=== PATIENT | male | born 1960 | race Hispanic/Latino ===

== ENCOUNTER → 2018-06-10 | Day surgery (SDC) | payer MEDICARE ==
[~2018-06-10] MED LIST: ALENDRONATE SOD35 MG PO; BUPIVACAINE 0.5%/EPI 30 ML SDV INJ ONE; DEXAMETHASONE SOD PHOS INJ 4 MG/ML VIAL ONE; FENTANYL CITRATE/PF 100MCG/2 ML INJ ONE; FUROSEMIDE40 MG PO; HYDROCODONE/APAP 7.5MG-325MG 1 EA TAB ONE; KLOR-CON 1010 MEQ PO; LEFLUNOMIDE20 MG PO; LIDOCAINE HCL 2% LOCAL INJ 5 ML SDV VIAL INJ ONE; LIDOCAINE JELLY 2% 10ML URO-JET ONE; MIDAZOLAM HCL 2 MG/2 ML VIAL ONE; ONDANSETRON HCL INJ 2MG/ML 2ML 2 MG/ML VIAL ONE; PRAMIPEXOLE D0.25 MG PO; PREDNISONE1 MG PO; PREDNISONE5 MG PO; PROPOFOL IV EMULSION 10 MG/ML 20 ML VIAL ONE; SEVOFLURANE INHAL SOLN 250 ML PEN BTL ONE; XELJANZ PO
--- OUTSIDE RECORDS SUMMARY | 2018-06-10 09:21 | XMS REPORT ---
Author Author Danii Joseph [facility] eClinicalWorks Address Unknown Phone Unavailable Care Team Providers Care Chuck Boner Name Role Phone Danii Joseph Unavailable Allergies, Adverse Reactions, Alerts Substance Reaction Event Type N.K.D.A. 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 Assessment Rheumatoid arthritis with positive rheumatoid factor M05.9 Active Problem Special screening for osteoporosis Z13.820 Active Problem 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 Active Medications Medication Code System Code Instructions Start Date End Date Status Dosage PredniSONE [facility] 68701727518 7mg Orally Once a day May 27, 2017 Active 1 tablet Furosemide [facility] 37888096007 40 MG/4ML Orally Twice a day Active 1 ml Tramadol HCl [facility] 99396494443 50 MG Orally once a day May 27, 2017 Active 1 tablet as needed Klor-Con M20 [facility] 26674146776 20 MEQ Orally Once a day Active 1 tablet with food Potassium ND 32987158115 75 MG Orally Once a day Active 1 tablet Leflunomide ND 48089969422 20MG Orally Once a day May 27, 2017 Active 1 tablet Pramipexole Dihydrochloride [facility] 44480961600 0.25 MG Orally Once a day Active 1 tablet before bedtime Vital Signs Date/Time: September 10, 2017 BMI 34.30 Index Weight 225.6 lbs Height 68 in Temperature 97.8 F Cardiac Monitoring Heart Rate 78 /min Blood Pressure Diastolic 70 mm Hg Blood Pressure Systolic 112 mm Hg Results Name Result Date Reference Range Unit Abnormality Flag COMPREHENSIVE METABOLIC PANEL W/EGFR ----ALBUMIN/GLOBULIN RATIO 1.9 20170910 1.0-2.5 (calc) N ----GLOBULIN 2.2 20170910 1.9-3.7 g/dL (calc) N ----ALKALINE PHOSPHATASE 45 20170910 40-115 U/L N ----BILIRUBIN, TOTAL 0.5 20170910 0.2-1.2 mg/dL N ----CHLORIDE 105 20170910 98-110 mmol/L N ----ALT 20 20170910 9-46 U/L N ----POTASSIUM 4.3 20170910 3.5-5.3 mmol/L N ----AST 18 20170910 10-35 U/L N ----SODIUM 139 20170910 135-146 mmol/L N ----BUN/CREATININE RATIO NOT APPLICABLE 20170910 6-22 (calc) ----eGFR 111 20170910 > OR=60 mL/min/1.73m2 N ----CALCIUM 9.2 20170910 8.6-10.3 mg/dL N ----CARBON DIOXIDE 27 20170910 20-31 mmol/L N ----ALBUMIN 4.1 20170910 3.6-5.1 g/dL N ----PROTEIN, TOTAL 6.3 20170910 6.1-8.1 g/dL N ----GLUCOSE 68 20170910 65-139 mg/dL N ----UREA NITROGEN (BUN) 11 20170910 7-25 mg/dL N ----CREATININE 0.86 20170910 0.70-1.33 mg/dL N ----eGFR NON-AFR. CYMRO 96 20170910 > OR=60 mL/min/1.73m2 N Summary Purpose eClinicalWorks Submission
--- OUTSIDE RECORDS SUMMARY | 2018-06-10 09:21 | XMS REPORT ---
Author Organization Unknown Address [address] [place] [address] Phone [phone] Care Team Providers Care Strapping Machine Operator Name Role Phone Owen Chong Jr Unavailable Unavailable Allergies Code Code System Name Reaction Severity Status Onset NKDA Medications Name Status Start Date Stop Date amoxicillin 500 mg capsule Completed 11/09/2016 azithromycin 250 mg tablet Completed 11/09/2016 benzonatate 200 mg capsule Take 1 capsule 3 times a day by oral route for 10 days. Active Not available betamethasone dipropionate 0.05 % topical cream Completed 03/05/2017 cefuroxime axetil 500 mg tablet Completed 11/09/2016 clotrimazole 1 % topical cream Completed 03/05/2017 clotrimazole-betamethasone 1 %-0.05 % topical cream APPLY CREAM TOPICALLY TO AFFECTED AREA TWICE DAILY IN THE MORNING AND EVENING FOR 2 WEEKS Completed 03/05/2017 diclofenac 1 % topical gel Completed 11/09/2016 doxepin 5 % topical cream Active Not available furosemide 40 mg tablet Active Not available gabapentin 100 mg capsule Completed 11/09/2016 guaifenesin ER 600 mg tablet, extended release 12 hr Take 1 tablet every 12 hours by oral route. Active Not available hydrocodone 7.5 mg-acetaminophen 325 mg tablet Completed 11/09/2016 ibuprofen 800 mg tablet Completed 11/09/2016 Klor-Con M20 mEq tablet,extended release Active Not available leflunomide 20 mg tablet Active Not available levofloxacin 500 mg tablet Take 1 tablet every 24 hours by oral route after meals for 10 days. Active Not available methylprednisolone 4 mg tablets in a dose pack Completed 11/09/2016 oseltamivir 75 mg capsule Active Not available peg-electrolyte solution 420 gram oral solution Completed 03/05/2017 prednisone 7 mg once daily as directed Active Not available prednisone 1 mg tablet Active Not available prednisone 5 mg tablet Active Not available Suprep Bowel Prep Kit 17.5 gram-3.13 gram-1.6 gram oral solution Completed 11/09/2016 terbinafine HCl 250 mg tablet Completed 11/09/2016 tramadol 50 mg tablet Active Not available Ventolin HFA 90 mcg/actuation aerosol inhaler Inhale 2 puffs 3 times a day by inhalation route for 30 days. Active Not available Xeljanz XR 11 mg tablet,extended release Take 1 tablet every day by oral route. Active Not available Problems Name Status Onset Date Source Obstructive Sleep Apnea Syndrome Active 11/09/2016 Interstitial Lung Disease Active 11/09/2016 Rheumatoid Arthritis Active 11/09/2016 Osteoarthritis of Knee Active 11/09/2016 Polyp of Colon Active 01/29/2017 Internal Hemorrhoids Active 01/29/2017 Idiopathic Pulmonary Fibrosis Active 04/05/2017 Procedures Date Name Performed by 10/15/2016 Colonoscopy & Polypectomy Information not available 11/09/2016 Electrocardiogram [facility] [address] [facility] [address] [place] [address] (Work Place) 07/27/2017 XR, Chest, 2 View [facility] [address] [place] [address] (Work Place) Lab Results Date Name Specimen Result Interpretation Description Value Range Status Address 07/23/2017 CBC W/ Auto Diff High White Blood Cell Count 12.1 thousand/uL 3.8-10.8 thousand/uL Final [facility] Laboratory: [address] Normal Red Blood Cell Count 4.64 million/uL 4.20-5.80 million/uL Final [facility] Laboratory: [address] Normal Hemoglobin 14.0 g/dL 13.2-17.1 g/dL Final [facility] Laboratory: [address] Normal Hematocrit 40.6 % 38.5-50.0 % Final [facility] Laboratory: [address] Normal Mcv 87.5 fL 80.0-100.0 fL Final [facility] Laboratory: [address] Normal Mch 30.2 pg 27.0-33.0 pg Final [facility] Laboratory: [address] Normal Mchc 34.5 g/dL 32.0-36.0 g/dL Final [facility] Laboratory: [address] Normal Rdw 13.3 % 11.0-15.0 % Final [facility] Laboratory: [address] [place] Normal Platelet Count 166 thousand/uL 140-400 thousand/uL Final [facility] Laboratory: [address] [place] Normal Mpv 10.8 fL 7.5-12.5 fL Final [facility] Laboratory: [address] [place] High Absolute Neutrophils 9390 cells/uL 0131-6636 cells/uL Final [facility] Laboratory: [address] [place] Normal Absolute Lymphocytes 1186 cells/uL 850-3900 cells/uL Final [facility] Laboratory: [address] [place] High Absolute Monocytes 1488 cells/uL 200-950 cells/uL Final [facility]: [address] [place] Low Absolute Eosinophils 0 cells/uL 15-500 cells/uL Final [facility]: [address] [place] Normal Absolute Basophils 36 cells/uL 0-200 cells/uL Final [facility] Laboratory: [address] [place] Normal Neutrophils 77.6 % Final [facility] Laboratory: [address] [place] Normal Lymphocytes 9.8 % Final [facility] Laboratory: [address] [place] Normal Monocytes 12.3 % Final [facility] Laboratory: [address] [place] Normal Eosinophils 0.0 % Final [facility] Laboratory: [address] [place] Normal Basophils 0.3 % Final [facility] CMP, Serum or Plasma Alt 27 U/L 0-55 U/L Final [facility] [facility] Ast 29 U/L 5-34 U/L Final [facility] [facility] Bun 15.2 mg/dL 8.4-25.7 mg/dL Final [facility]: [address] [facility] Alk Phos 48 unit/L 40-150 unit/L Final [facility]055 [facility] High Glucose 110 mg/dL 70-99 mg/dL Final [facility]: [address] [facility] Albumin 3.5 g/dL 3.5-5.0 g/dL Final [facility] Laboratory: [address] [place] [address], [place] Creatinine 1.02 mg/dL 0.72-1.25 mg/dL Final [facility] Laboratory: [address] [place] [address], [place] eGFR Non- >60 mL/min/1.73m2 >60 mL/min/1.73m2 Final [facility] Laboratory: [address] Total Bilirubin 0.6 mg/dL 0.2-1.2 mg/dL Final [facility] Laboratory: [address] [place] [address], [place] eGFR - >60 mL/min/1.73m2 >60 mL/min/1.73m2 Final [facility] Laboratory: [address] [place] [address], [place] Low Sodium 132 mEq/L 136-145 mEq/L Final [facility] Laboratory: [address] Potassium 4.1 mEq/L 3.5-5.1 mEq/L Final [facility] Laboratory: [address] Low Chloride 96 mmol/L 98-107 mmol/L Final [facility] Laboratory: [address] Total Protein 6.8 g/dL 6.4-8.3 g/dL Final [facility] Laboratory: [address] Low Calcium 8.0 mg/dL 8.4-10.2 mg/dL Final [facility] Laboratory: [address] Co2 24.6 mmol/L 22.0-29.0 mmol/L Final [facility] Laboratory: [address] Anion Gap 11 calc Final [facility] Laboratory: [address] Jennifer Humphries [facility], [place] 07/23/2017 Urinalysis, Dipstick Color Color yellow [facility]: [address] [place] [address], [place] Color Appearance clear [facility]: [address] [place] [address], [place] Color Glucose negative [facility]: 8951 [facility], [place] Color Bilirubin negative [facility]: [address] [place] [address], [place] Color Ketones negative [facility]: [address] [place] [address], [place] Color Specific [place] 1.010 [facility]: 8951 [facility], [place] Color Blood negative [facility]: [address] [facility], [place] Color PH 6.0 [facility]: 8[address] [facility], [place] Color Protein trace [facility]: 8[address] [facility], [place] Color Urobilinogen 0.2 [facility]: 8[address] [facility], [place] Color Nitrites negative [facility]: 8[address] [facility], [place] Color Leukocytes negative [facility]: [address] [place] [address], [place] 04/05/2017 CMP, Serum or Plasma Normal Glucose 79 mg/dL 65-99 mg/dL Final [facility] Laboratory: [address] Normal Urea Nitrogen (BUN) 13 mg/dL 7-25 mg/dL Final [facility] Laboratory: [address] Normal Creatinine 0.90 mg/dL 0.70-1.33 mg/dL Final [facility] Laboratory: [address] Normal eGFR Non-afr. Northern Irish 94 mL/min/1.73m2 > or=60 mL/min/1.73m2 Final [facility] Laboratory: [address] Normal eGFR 109 mL/min/1.73m2 > or=60 mL/min/1.73m2 Final [facility] Laboratory: [address] BUN/creatinine Ratio not applicable (calc) 6-22 (calc) Final [facility] Laboratory: [address] Normal Sodium 142 mmol/L 135-146 mmol/L Final [facility] Laboratory: [address] Normal Potassium 4.2 mmol/L 3.5-5.3 mmol/L Final [facility] Laboratory: [address] Normal Chloride 104 mmol/L 98-110 mmol/L Final [facility]: [address] Normal Carbon Dioxide 27 mmol/L 20-31 mmol/L Final [facility] Laboratory: [address] Normal Calcium 9.3 mg/dL 8.6-10.3 mg/dL Final [facility] Laboratory: [address] [place] [address] Normal Protein, Total 6.7 g/dL 6.1-8.1 g/dL Final [facility] Laboratory: [address] Normal Albumin 4.3 g/dL 3.6-5.1 g/dL Final [facility] Laboratory: [address] [place] [address] Normal Globulin 2.4 g/dL (calc) 1.9-3.7 g/dL (calc) Final [facility] Laboratory: [address] [place] [address] Normal Albumin/globulin Ratio 1.8 (calc) 1.0-2.5 (calc) Final [facility] Laboratory: [address] [place] [address] Normal Bilirubin, Total 0.5 mg/dL 0.2-1.2 mg/dL Final [facility] Laboratory: [address] [place] [address] Normal Alkaline Phosphatase 50 U/L 40-115 U/L Final [facility] Laboratory: [address] [place] [address] Normal Ast 20 U/L 10-35 U/L Final [facility] Laboratory: [address] [place] [address] Normal Alt 23 U/L 9-46 U/L Final [facility] Laboratory: [address] [place] [address] 04/05/2017 Hepatitis C Virus RNA, Quant, PCR, Serum or Plasma Normal Hepatitis C Antibody non-reactive non-reactive Final [facility] Laboratory: [address] [place] [address] Normal Signal to Cut-off 0.03 <1.00 Final [facility] Laboratory: [address] [place] [address] 04/05/2017 HbA1C (Hemoglobin a1C), Blood Normal Hemoglobin a1C 5.3 % of total HGB <5.7 % of total HGB Final [facility] Laboratory: [address] [place] [address] EAG (mg/dL) 105 (calc) Final [facility] Laboratory: [address] [place] [address] EAG (mmol/L) 5.8 (calc) Final [facility] Laboratory: [address] [place] [address] 09/17/2016 TSH, Serum or Plasma Normal Tsh 1.94 mIU/L 0.40-4.50 mIU/L Final [facility] Laboratory: [address] [place] [address] 09/17/2016 Lipid Panel, Serum High Cholesterol, Total 231 mg/dL 125- 200 mg/dL Final [facility] Laboratory: [address] Normal HDL Cholesterol 41 mg/dL > or=40 mg/dL Final [facility]: [address] High Triglycerides 160 mg/dL <150 mg/dL Final [facility] Laboratory: [address] High LDL-cholesterol 158 mg/dL (calc) <130 mg/dL (calc) Final [facility] Laboratory: [address] High Chol/hdlc Ratio 5.6 (calc) < or=5.0 (calc) Final [facility] Laboratory: [address] High Non HDL Cholesterol 190 mg/dL (calc) Final [facility]: [address] 09/17/2016 CMP, Serum or Plasma Normal Glucose 90 mg/dL 65-99 mg/dL Final [facility] Laboratory: [address] Normal Urea Nitrogen (BUN) 15 mg/dL 7-25 mg/dL Final [facility] Laboratory: [address] Normal Creatinine 0.91 mg/dL 0.70-1.33 mg/dL Final [facility] Laboratory: [address] Normal eGFR Non-afr. Northern Irish 93 mL/min/1.73m2 > or=60 mL/min/1.73m2 Final [facility] Laboratory: [address] Normal eGFR 108 mL/min/1.73m2 > or=60 mL/min/1.73m2 Final [facility] Laboratory: [address] BUN/creatinine Ratio not applicable (calc) 6-22 (calc) Final [facility]: [address] Normal Sodium 142 mmol/L 135-146 mmol/L Final [facility] Laboratory: [address] Normal Potassium 3.9 mmol/L 3.5-5.3 mmol/L Final [facility] Laboratory: [address] Fwmarcie [address] Normal Chloride 104 mmol/L 98-110 mmol/L Final [facility]: [address] Jennifer y [address] Normal Carbon Dioxide 25 mmol/L 20-31 mmol/L Final [facility] Laboratory: [address] [place] Normal Calcium 9.4 mg/dL 8.6-10.3 mg/dL Final [facility]055 [facility] Protein, Total 7.0 g/dL 6.1-8.1 g/dL Final [facility] Laboratory: [address] Normal Albumin 4.5 g/dL 3.6-5.1 g/dL Final [facility] Laboratory: [address] Normal Globulin 2.5 g/dL (calc) 1.9-3.7 g/dL (calc) Final [facility] Laboratory: [address] Normal Albumin/globulin Ratio 1.8 (calc) 1.0-2.5 (calc) Final [facility] Laboratory: [address] Normal Bilirubin, Total 0.7 mg/dL 0.2-1.2 mg/dL Final [facility] Laboratory: [address] Normal Alkaline Phosphatase 55 U/L 40-115 U/L Final [facility]: [address] Normal Ast 16 U/L 10-35 U/L Final [facility]: [address] Normal Alt 18 U/L 9-46 U/L Final [facility] Laboratory: [address] [place] [address] 09/17/2016 PT/PTT, Plasma Normal Partial Thromboplastin Time, Activated 27 sec 22-34 sec Final [facility] Laboratory: [address] Normal Inr 1.0 Final [facility] Laboratory: [address] Normal Pt 10.4 sec 9.0-11.5 sec Final [facility]: [address] [facility] 09/17/2016 PSA, Serum or Plasma Normal PSA, Total 1.0 NG/mL < or=4.0 NG/mL Final [facility] Laboratory: [address] [place] [address] 09/17/2016 CBC W/ Auto Diff Normal White Blood Cell Count 8.2 thousand/uL 3.8-10.8 thousand/uL Final [facility] Laboratory: [address] [place] Normal Red Blood Cell Count 4.55 million/uL 4.20-5.80 million/uL Final [facility] Laboratory: [address] [place] Normal Hemoglobin 13.9 g/dL 13.2-17.1 g/dL Final [facility] Laboratory: [address] Normal Hematocrit 42.2 % 38.5-50.0 % Final [facility] Laboratory: [address] [place] Normal Mcv 92.7 fL 80.0-100.0 fL Final [facility] Laboratory: [address] [place] Normal Mch 30.7 pg 27.0-33.0 pg Final [facility] Laboratory: [address] [place] Normal Mchc 33.1 g/dL 32.0-36.0 g/dL Final [facility] Laboratory: [address] [place] Normal Rdw 14.8 % 11.0-15.0 % Final [facility] Laboratory: [address] [place] Normal Platelet Count 196 thousand/uL 140-400 thousand/uL Final [facility] Laboratory: [address] [place] Normal Mpv 9.1 fL 7.5-12.5 fL Final [facility] Laboratory: [address] Normal Absolute Neutrophils 5879 cells/uL 0133-9164 cells/uL Final [facility] Laboratory: [address] Normal Absolute Lymphocytes 1656 cells/uL 850-3900 cells/uL Final [facility]: [address] [place] Normal Absolute Monocytes 558 cells/uL 200-950 cells/uL Final [facility] Laboratory: [address] [place] Normal Absolute Eosinophils 82 cells/uL 15-500 cells/uL Final [facility]: [address] [place] Normal Absolute Basophils 25 cells/uL 0-200 cells/uL Final [facility]: [address] [place] Normal Neutrophils 71.7 % Final [facility] Laboratory: [address] [place] Normal Lymphocytes 20.2 % Final [facility] Laboratory: [address] [place] Normal Monocytes 6.8 % Final [facility] Laboratory: [address] [place] [address], [place] Normal Eosinophils 1.0 % Final [facility] Laboratory: [address] [place] [address], [place] Normal Basophils 0.3 % Final [facility]: [address] [place] [address], [place] Rapid Strep Group a, Throat Strep negative [facility]: [address] [place] [address], [place] Rapid Flu (A+B) Type Flu a negative [facility]: [address] [place] [address], [place] Type Flu B positive [facility]: [address] [place] [address], [place] Electrocardiogram Rate & Rhythm rrr [facility]: [address] [place] [address], [place] Qrs [facility]: [address] [place] [address], [place] NE Interval [facility]: [address] [place] [address], [place] QRS Duration [facility]: [address] [place] [address], [place] QT Interval [facility]: [address] Urinalysis, Dipstick Color Color yellow [facility]: [address] Color Appearance clear [facility]: [address] Color Glucose negative [facility]: [address] Color Bilirubin small [facility]: [address] Color Ketones negative [facility]: [address] Color Specific [place] 1.025 [facility]: [address] Color Blood negative [facility]: [address] Color PH 6.0 [facility]: [address] Color Protein 30 [facility]: [address] Color Urobilinogen 0.2 [facility]: [address] Color Nitrites negative [facility]: [address] Color Leukocytes negative [facility]: [address] Past Encounters 07/27/2017 Adult Health Examination; Body Mass Index 30+ - Obesity; Advance Directive Discussed with Patient; Depression Screening; Rheumatoid Arthritis; Idiopathic Pulmonary Fibrosis; Hypocalcemia; Hyponatremia; Cough Matteo Cordon MD: [address] [facility], [place] [address], Ph. 07/23/2017 Upper Respiratory Infection; Influenza; Fever; Hypovolemia; Tachycardia; Morbid Obesity; Rheumatoid Arthritis; Idiopathic Pulmonary Fibrosis Owen Chong Jr, MD: [address] [facility] [address] [address], Ph. 04/05/2017 Onychomycosis of Toenails; Idiopathic Pulmonary Fibrosis; Hepatitis C Screening; Long-term Current Use of Drug Therapy; Immunization Matteo Cordon MD: [address] [facility] [address] [address], Ph. 03/05/2017 Interstitial Lung Disease; Osteoarthritis of Knee; Rheumatoid Arthritis; Obstructive Sleep Apnea Syndrome; Contact Dermatitis Ernie Stark MD: [address] [facility] [address] [address], Ph. 11/09/2016 Peripheral Edema; Rheumatoid Arthritis; Osteoarthritis of Knee; Morbid Obesity; Mixed Hyperlipidemia; Tinea Corporis Owen Chong Jr, MD: [address] [facility] [address] [address], Ph. Social History Smoking Status Never Smoker Vaccine List Vaccine Type influenza, unspecified formulation 05/12/20160.5 mL pneumococcal polysaccharide PPV23 08/02/20150.5 mL Tdap 04/05/20170.5 mL Plan of Care Patient Instructions It was good to see you in the office today for your Medicare Annual Wellness Visit. You have been provided some information on healthy nutrition, including a diet rich in fruits and vegetables, minimizing simple carbohydrates, salt, and saturated fats. I want to encourage regular cardiovascular exercise such as walking at least 30 minutes daily, 5 times per week. Please remember to schedule any preventive health measures that we talked about today. You have also been provided education on fall prevention and community- based lifestyle interventions to help reduce health risks and promote healthy living in your [employer] folder. Screening Recommendations 1. Vaccines Pneumococcal: discussed today and information sent with patient in their [employer] health folder Influenza: discussed today and information sent with patient in their [facility] health folder Shingles: discussed today and information sent with patient in their [facility] health folder Tetanus: discussed today and information sent with patient in their [facility] health folder 2. Prostate Screening: discussed today and information sent with patient in their [facility] health folder 3. Colorectal cancer Screening Colonoscopy: discussed today and information sent with patient in their [facility] health folder Fecal Occult Blood: discussed today and information sent with patient in their [facility] health folder 4. Bone Mass Measurement: discussed today 5. Eye Exam Screening: discussed today 6. Cholesterol Screening: discussed today 7. Diabetes Screening: discussed today D/w pt if edema worsens , gets SOB , must f/u in office immediately Reminders Provider Appointments None recorded. Lab None recorded. Referral None recorded. Procedures None recorded. Surgeries None recorded. Imaging None recorded. Vitals 07/27/2017 10:30AM AWV Height Weight BMI Blood Pressure 5 ft 8 in 224 lbs 34.1 kg/m2 122/84 mm[Hg] 07/23/2017 03:15PM Work In Same Day Height Weight BMI Blood Pressure 5 ft 8 in 224 lbs 34.1 kg/m2 132/80 mm[Hg] 04/05/2017 10:00AM Est Patient Height Weight BMI Blood Pressure 5 ft 8 in 230 lbs 35 kg/m2 122/84 mm[Hg] 03/05/2017 10:15AM Est Patient Height Weight BMI Blood Pressure 5 ft 8 in 231 lbs 35.1 kg/m2 130/80 mm[Hg] 11/09/2016 08:45AM Est Patient Height Weight BMI Blood Pressure 5 ft 8 in 231.4 lbs 35.2 kg/m2 130/82 mm[Hg]
--- OUTSIDE RECORDS SUMMARY | 2018-06-10 09:21 | XMS REPORT ---
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
--- OUTSIDE RECORDS SUMMARY | 2018-06-10 09:21 | XMS REPORT ---
Author Author Danii Joseph [facility] eClinicalWorks Address Unknown Phone Unavailable Care Team Providers Care Nursing Information Systems Coordinator Name Role Phone Danii Joseph Unavailable Allergies, Adverse Reactions, Alerts Substance Reaction Event Type N.K.D.A. 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 Problem Special screening for osteoporosis Z13.820 Active Problem Other intermediate (current) drug therapy Z79.899 Active Medications Medication Code System Code Instructions Start Date End Date Status Dosage Tramadol HCl [facility] 24017571438 50 MG Orally once a day May 27, 2017 Active 1 tablet as needed Alendronate Sodium ND 17276128949 35MG Active TAKE 1 TABLET BY MOUTH ONCE A WEEK Xeljanz XR [facility] 25664148155 11 MG Orally Once a day Active 1 tablet Potassium ND 84060750762 75 MG Orally Once a day Active 1 tablet Furosemide [facility] 28952445988 40 MG/4ML Orally Twice a day Active 1 ml Klor-Con M20 ND 61648898518 20 MEQ Orally Once a day Active 1 tablet with food Leflunomide [facility] 55645101521 20MG Orally Once a day May 27, 2017 Active 1 tablet PredniSONE ND 39488788940 7mg Orally Once a day May 27, 2017 Active 1 tablet Pramipexole Dihydrochloride ND 95808346581 0.25 MG Orally Once a day Active 1 tablet before bedtime Vital Signs Date/Time: Apr 01, 2018 BMI 34 Index Weight 226 lbs Height 68 in Temperature 96.8 F Cardiac Monitoring Heart Rate 88 /min Blood Pressure Diastolic 76 mm Hg Blood Pressure Systolic 120 mm Hg Results No Known Results Summary Purpose eClinicalWorks Submission
--- OUTSIDE RECORDS SUMMARY | 2018-06-10 09:21 | XMS REPORT | Summary of Care ---
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
--- OUTSIDE RECORDS SUMMARY | 2018-06-10 09:21 | XMS REPORT ---
Author Author Danii Joseph [facility] eClinicalWorks Address Unknown Phone Unavailable Care Team Providers Care Hobbing Machine Operator Name Role Phone Danii Joseph Unavailable Allergies, Adverse Reactions, Alerts Substance Reaction Event Type N.K.D.A. 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 Problem Special screening for osteoporosis Z13.820 Active Problem Other longterm (current) drug therapy Z79.899 Active Medications Medication Code System Code Instructions Start Date End Date Status Dosage Klor-Con M20 [facility] 14070646657 20 MEQ Orally Once a day Active 1 tablet with food Potassium ND 72963254191 75 MG Orally Once a day Active 1 tablet Alendronate Sodium ND 10486541329 35 MG Orally Once a week Active 1 tablet Pramipexole Dihydrochloride [facility]] 81202047888 0.25 MG Orally Once a day Active 1 tablet before bedtime Furosemide [facility] 2] 11826360672 40 MG/4ML Orally Twice a day Active 1 ml PredniSONE ND 08802293523 7mg Orally Once a day May 27, 2017 Active 1 tablet Tramadol HCl ND 05241793698 50 MG Orally once a day May 27, 2017 Active 1 tablet as needed Leflunomide ND 15306480808 20MG Orally Once a day May 27, 2017 Active 1 tablet Vital Signs Date/Time: Dec 31, 2017 BMI 34.36 Index Weight 226 lbs Height 68 in Temperature 97.7 F Cardiac Monitoring Heart Rate 86 /min Blood Pressure Diastolic 80 mm Hg Blood Pressure Systolic 126 mm Hg Results Name Result Date Reference Range Unit Abnormality Flag 1055 SEDIMENTATION RATE ----SEDIMENTATION RATE 22 [id number] 0-15 MM/HOUR H 1000 CBC W/AUTO DIFF ----PLATELET COUNT 202 23636752 130-400 K/UL ----MCV 87.6 53855377 80.0-100.0 fL ----HEMATOCRIT 41.6 90102783 37.0-49.0 % ----BASOPHILS 1.0 54044220 0.0-2.0 % ----MCHC 32.9 84763089 32.0-35.5 G/DL ----EOSINOPHILS 2.5 78723002 0.0-7.0 % ----MCH 28.8 43020813 27.0-34.0 PG ----MONOCYTES 22.7 46219746 4.0-13.0 % H ----WBC 6.0 60167608 4.0-11.0 K/UL ----HEMOGLOBIN 13.7 30715891 13.0-17.0 G/DL ----RBC 4.75 [id number] 4.10-5.70 M/UL ----LYMPHOCYTES 20.3 55309262 19.0-48.0 % ----RDW 13.2 91579843 11.0-15.0 % ----NEUTROPHILS 53.5 32075374 40.0-74.0 % 9179 COMPREHENSIVE METABOLIC PANEL ----CALC A/G RATIO 1.5 73655372 1.0-2.6 RATIO ----CALC GLOBULIN 2.8 46379349 1.9-3.7 G/DL ----ALKALINE PHOSPHATASE 47 19687109 40-123 U/L ----BILIRUBIN, TOTAL 0.2 25030694 <=1.2 MG/DL ----CHLORIDE 102 25297306 95-107 MEQ/L ----ALT 27 01195026 5-50 U/L ----POTASSIUM 3.7 75266701 3.5-5.4 MEQ/L ----AST 19 76425877 9-50 U/L ----SODIUM 144 15830428 133-146 MEQ/L ----CALC BUN/CREAT 15 69164079 6-28 RATIO ---- eGFR NON- AMER. 94 20171231 >60 ML/MIN/1.73 ----CALCIUM 9.3 88951485 8.5-10.5 MG/DL ----CARBON DIOXIDE 27 20171231 19-31 MEQ/L ----ALBUMIN 4.3 79951710 3.5-5.2 G/DL ----PROTEIN, TOTAL 7.1 96431916 6.1-8.3 G/DL ----GLUCOSE 100 64014927 70-99 MG/DL H ----BUN 13 01831755 6-20 MG/DL ----CREATININE 0.87 20171231 0.80-1.40 MG/DL ---- eGFR AMER. 109 20171231 >60 ML/MIN/1.73 5083 HIGH SENSITIVITY CRP ----HIGH SENSITIVITY CRP 1.8 20171231 SEE BELOW MG/L Summary Purpose eClinicalWorks Submission
--- OUTSIDE RECORDS SUMMARY | 2018-06-10 09:21 | XMS REPORT ---
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
--- OUTSIDE RECORDS SUMMARY | 2018-06-10 09:21 | XMS REPORT ---
Author Author TonykyrieGalo Organization eClinicalWorks Address Unknown Phone Unavailable Care Team Providers Care Cash Sales Audit Clerk Name Role Phone Galo Major CP Unavailable Allergies, Adverse Reactions, Alerts Substance Reaction Event Type N.K.D.A. Info Not Available Non Drug Allergy Problems Problem Type Condition Code Onset Dates Condition Status Assessment Other correction (current) drug therapy Z79.899 Active Assessment Osteoarthritis, [...] screening for osteoporosis Z13.820 Active Problem Other correction (current) drug therapy Z79.899 Active Medications Medication Code System Code Instructions Start Date End Date Status Dosage PredniSONE [facility] 23522975465 7mg Orally Once a day May 27, 2017 Active 1 tablet Leflunomide ND 54837770498 20MG Orally Once a day May 27, 2017 Active 1 tablet Klor-Con M20 ND 02728325423 20 MEQ Orally Once a day Active 1 tablet with food Furosemide [facility] 63922525803 40 MG/4ML Orally Twice a day Active 1 ml Potassium ND 37199559592 75 MG Orally Once a day Active 1 tablet Xeljanz XR ND 22764069366 11 MG Orally Once a day May 27, 2017 Active 1 tablet Tramadol HCl ND 42091417864 50 MG Orally once a day May 27, 2017 Active 1 tablet as needed Vital Signs Date/Time: Jun 15, 2017 BMI 35.42 Index Weight 233 lbs Height 68 in Temperature 98.2 F Cardiac Monitoring Heart Rate 80 /min Blood Pressure Diastolic 78 mm Hg Blood Pressure Systolic 132 mm Hg Results No Known Results Summary Purpose eClinicalWorks Submission
--- OUTSIDE RECORDS SUMMARY | 2018-06-10 09:21 | XMS REPORT ---
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
--- OUTSIDE RECORDS SUMMARY | 2018-06-10 09:21 | XMS REPORT ---
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
--- OUTSIDE RECORDS SUMMARY | 2018-06-10 09:21 | XMS REPORT ---
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
--- OUTSIDE RECORDS SUMMARY | 2018-06-10 09:21 | XMS REPORT ---
Author Author ErickbrightGalo Organization eClinicalWorks Address Unknown Phone Unavailable Care Team Providers Care Rn Neonatal Name Role Phone Galo Major CP Unavailable Allergies, Adverse Reactions, Alerts Substance Reaction Event Type N.K.D.A. Info Not Available Non Drug Allergy Problems Problem Type Condition Code Onset Dates Condition Status Assessment Other residential (current) drug therapy Z79.899 Active Assessment Osteoarthritis, [...] screening for osteoporosis Z13.820 Active Problem Other residential (current) drug therapy Z79.899 Active Medications Medication Code System Code Instructions Start Date End Date Status Dosage Xeljanz XR [facility] 02938143961 11 MG Orally Once a day May 27, 2017 Active 1 tablet Potassium ND 84977378421 75 MG Orally Once a day Active 1 tablet Leflunomide ND 45459318493 20MG Orally Once a day May 27, 2017 Active 1 tablet Tramadol HCl ND 39990767730 50 MG Orally once a day May 27, 2017 Active 1 tablet as needed Klor-Con M20 ND 65890350314 20 MEQ Orally Once a day Active 1 tablet with food PredniSONE ND 60427931372 7mg Orally Once a day May 27, 2017 Active 1 tablet Furosemide [facility] 85017719278 40 MG/4ML Orally Twice a day Active 1 ml Vital Signs Date/Time: Jun 09, 2017 BMI 35.27 Index Weight 232 lbs Height 68 in Temperature 97.9 F Cardiac Monitoring Heart Rate 80 /min Blood Pressure Diastolic 86 mm Hg Blood Pressure Systolic 130 mm Hg Results No Known Results Summary Purpose eClinicalWorks Submission
--- OUTSIDE RECORDS SUMMARY | 2018-06-10 09:21 | XMS REPORT | Continuity of Care Document ---
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 Active Problem [facility]/27[facility] [place] Special screening for osteoporosis Active Problem 04/27/2018 Devin Hermosillo Other assisted drug therapy Active Problem 04/27/2018 Devin Hermosillo Muscle weakness 10/19/2017 [facility] [place] Medications Medication Details Route Status Patient Instructions Ordering Provider Order Date Source Alendronate Sodium 1 tablet Orally Active 35 MG Orally oNCE A WEEK Opal 04/05/2018 Devin Hermosillo Alendronate Sodium 1 tablet Orally Active 35 MG Orally Once a week Opal 09/14/2017 Devin Hermosillo Xeljanz XR 1 tablet Orally Active 11 MG Orally Once a day Herm[place]illo 05/27/2017 Devin Hermosillo Leflunomide 1 tablet Orally Active 20MG Orally Once a day Opal 05/27/2017 Devin Hermosillo Tramadol HCl 1 tablet as needed Orally Active 50 MG Orally once a day Opal 05/27/2017 Devin Hermosillo PredniSONE 1 tablet Orally Active 7mg Orally Once a day Opal 05/27/2017 Devin Hermosillo Leflunomide TAKE ONE TABLET BY MOUTH ONCE DAILY Orally Active 20MG Orally Once a day Opal 06/18/2016 Devin Hermosillo Xeljanz XR 1 tablet Orally Active 11 MG Orally Once a day Opal 03/24/2016 eDvin Hermosillo Potassium 1 tablet Orally Active 75 MG Orally Once a day Opal Devin Hermosillo PredniSONE 1 tablet Orally Active 7mg Orally Once a day Opal Devin Hermosillo Klor-Con M20 1 tablet with food Orally Active 20 MEQ Orally Once a day Opal Devin Hermosillo Furosemide 1 ml Orally Active 40 MG/4ML Orally Twice a day Opal Devin Hermosillo Pramipexole Dihydrochloride 1 tablet before bedtime Orally Active 0.25 MG Orally Once a day Opal Devin Hermosillo PredniSONE 1 tablet orally Active 5MG orally once a day Opal Devin Hermosillo Alendronate Sodium TAKE 1 TABLET BY MOUTH ONCE A WEEK NA Active 35MG Opal Devin Hermosillo Xeljanz XR 1 tablet Orally Active 11 MG Orally Once a day Opal Devin Hermosillo Alendronate Sodium 1 tablet Orally Active 35 MG Orally Once a week Opal Devin Hermosillo Allergies, Adverse Reactions, Alerts Substance Category Reaction Severity Reaction type Status Date Reported Comments Source N.K.D.A. Adverse Reaction Info Not Available Adverse Reaction Active 04/01/2018 Devin Hermosillo Immunizations Immunization Date Given Site Status Last Updated Comments Source Results Order Name Results Value Reference Range Date Interpretation Comments Source Vital Signs Vital Sign Value Date Comments Source Weight 226 04/01/2018 Devin Hermosillo Height 68 04/01/2018 Devin Hermosillo Temperature Oral (F) 96.8 F 04/01/2018 Devin Hermosillo Heart Rate 88 04/01/2018 Devin Hermosillo Diastolic (mm Hg) 76 04/01/2018 Devin Hermosillo Systolic (mm Hg) 120 04/01/2018 Devin Hermosillo Weight 226 12/31/2017 Devin Hermosillo Height 68 12/31/2017 Devin Hermosillo Temperature Oral (F) 97.7 F 12/31/2017 Devin Hermosillo Heart Rate 86 12/31/2017 Devin Hermosillo Diastolic (mm Hg) 80 12/31/2017 Devin Hermosillo Systolic (mm Hg) 126 12/31/2017 Devin Hermosillo Weight 225.6 09/10/2017 Devin Hermosillo Height 68 09/10/2017 Devin Hermosillo Temperature Oral (F) 97.8 F 09/10/2017 Devin Hermosillo Heart Rate 78 09/10/2017 Devin Hermosillo Diastolic (mm Hg) 70 09/10/2017 Devin Ehrmosillo Systolic (mm Hg) 112 09/10/2017 Devin Hermosillo Weight 233 06/15/2017 Devin Hermosillo Height 68 06/15/2017 Devin Hermosillo Temperature Oral (F) 98.2 F 06/15/2017 Devin Hermosillo Heart Rate 80 06/15/2017 Devin Hermosillo Diastolic (mm Hg) 78 06/15/2017 Devin Hermosillo Systolic (mm Hg) 132 06/15/2017 Devin Hermosillo Weight 232 06/09/2017 Devin Hermosillo Height 68 06/09/2017 Devin Hermosillo Temperature Oral (F) 97.9 F 06/09/2017 Devin Hermosillo Heart Rate 80 06/09/2017 Devin Hermosillo Diastolic (mm Hg) 86 06/09/2017 Devin Hermosillo Systolic (mm Hg) 130 06/09/2017 Devin Hermosillo Weight 230 05/27/2017 Devin Hermosillo Height 68 05/27/2017 Devin Hermosillo Temperature Oral (F) 97.0 F 05/27/2017 Devin Hermosillo Heart Rate 80 05/27/2017 Devin Hermosillo Diastolic (mm Hg) 70 05/27/2017 Devin Hermosillo Systolic (mm Hg) 128 05/27/2017 Devin Hermosillo Weight 230 03/01/2017 Devin Hermosillo Height 68 03/01/2017 Devin Hermosillo Temperature Oral (F) 97.9 F 03/01/2017 Devin Hermosillo Heart Rate 84 03/01/2017 Devin Hermosillo Diastolic (mm Hg) 74 03/01/2017 Devin Hermosillo Systolic (mm Hg) 132 03/01/2017 Devin Hermosillo Encounters Location Location Details Encounter Type Encounter Number Reason For Visit Attending Provider ADM Date DC Date Status Source [facility] [id number] Danii [facility] [facility] [facility] [place] Procedure Code Date Perfomer Comments Source
--- OUTSIDE RECORDS SUMMARY | 2018-06-10 09:21 | XMS REPORT ---
Author Author Danii Joseph Organization eClinicalWorks Address Unknown Phone Unavailable Care Team Providers Care Senior Manufacturing Test Engineer Name Role Phone OpalDanii metz CP Unavailable Allergies, Adverse Reactions, Alerts Substance Reaction Event Type N.K.D.A. Info Not Available Non Drug Allergy Problems Problem Type Condition Code Onset Dates Condition Status Assessment Rheumatoid arthritis with positive rheumatoid factor M05.9 Active Assessment Other buttermaker (current) drug therapy Z79.899 Active Assessment Osteoarthritis, [...] screening for osteoporosis Z13.820 Active Problem Other buttermaker (current) drug therapy Z79.899 Active Medications Medication Code System Code Instructions Start Date End Date Status Dosage Klor-Con M20 ND 14051664208 20 MEQ Orally Once a day Active 1 tablet with food Leflunomide ND 23062668531 20MG Orally Once a day May 27, 2017 Active 1 tablet Furosemide ND 42913269022 40 MG/4ML Orally Twice a day Active 1 ml Tramadol HCl ND 13007799410 50 MG Orally once a day May 27, 2017 Active 1 tablet as needed Xeljanz XR ND 80996424500 11 MG Orally Once a day May 27, 2017 Active 1 tablet PredniSONE ND 26811448929 7mg Orally Once a day May 27, 2017 Active 1 tablet Potassium ND 61030029716 75 MG Orally Once a day Active 1 tablet Vital Signs Date/Time: May 27, 2017 BMI 34.97 Index Weight 230 lbs Height 68 in Temperature 97.0 F Cardiac Monitoring Heart Rate 80 /min Blood Pressure Diastolic 70 mm Hg Blood Pressure Systolic 128 mm Hg Results No Known Results Summary Purpose eClinicalWorks Submission
--- OUTSIDE RECORDS SUMMARY | 2018-06-10 09:21 | XMS REPORT ---
Author Author Danii Joseph [facility] eClinicalWorks Address Unknown Phone Unavailable Care Team Providers Care Labor Contractor Name Role Phone OpalDanii metz CP Unavailable Allergies, Adverse Reactions, Alerts Substance Reaction Event Type N.K.D.A. 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 37158005520 11 MG Orally Once a day Mar 24, 2016 Active 1 tablet Potassium ND 66116143949 75 MG Orally Once a day Active 1 tablet Leflunomide ND 34106620636 20MG Orally Once a day June 18, 2016 Active TAKE ONE TABLET BY MOUTH ONCE DAILY PredniSONE ND 20696544304 7mg Orally Once a day Active 1 tablet Klor-Con M20 ND 36031469809 20 MEQ Orally Once a day Active 1 tablet with food Furosemide ND 28342695221 40 MG/4ML Orally Twice a day Active 1 ml Vital Signs Date/Time: Mar 01, 2017 BMI 34.97 Index Weight 230 lbs Height 68 in Temperature 97.9 F Cardiac Monitoring Heart Rate 84 /min Blood Pressure Diastolic 74 mm Hg Blood Pressure Systolic 132 mm Hg Results No Known Results Summary Purpose eClinicalWorks Submission
--- OUTSIDE RECORDS SUMMARY | 2018-06-10 09:21 | XMS REPORT ---
Author Author Myron Hermosillo Organization eClinicalWorks Address Unknown Phone Unavailable Care Team Providers Care Chief Operating Engineer Name Role Phone Myron Hermosillo CP Unavailable [...] screening for osteoporosis Z13.820 Active Problem Other airplane pilot crop dusting (current) drug therapy Z79.899 Active Medications Medication Code System Code Instructions Start Date End Date Status Dosage Xeljanz XR [facility] 26015582546 11 MG Orally Once a day May 27, 2017 Active 1 tablet Results No Known Results Summary Purpose eClinicalWorks Submission
--- OUTSIDE RECORDS SUMMARY | 2018-06-10 09:21 | XMS REPORT ---
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
--- OUTSIDE RECORDS SUMMARY | 2018-06-10 09:22 | XMS REPORT | Encounter Summary ---
Author Organization Unknown Address [address] [place] [address] Phone [phone] Care Team Providers Care Acid Cutter Name Role Phone Dr. Owen Chong 3 [phone] Jaret Horn MD 114 [phone] Danii Joseph MD 121 [phone] Reason for Visit pre-op evaluation Instructions 1. Pre-surgery evaluation PT/PTT, plasma electrocardiogram 2. Mixed hyperlipidemia CMP, serum or plasma 3. Osteoarthritis of knee 4. Rheumatoid lung disease performance analyst referral CBC w/ auto diff 5. Idiopathic pulmonary fibrosis 6. Body mass index 30+ - obesity aprenda acerca del peso saludable - [learning about healthy weight] ndice de masa corporal: instrucciones de cuidado - [body mass index: care instructions] 7. Morbid obesity Discussion Note: None recorded. Plan of Care Reminders Provider Appointments None recorded. Lab CMP, Serum or Plasma 05/17/2018 [facility] CBC W/ Auto Diff 05/17/2018 [facility] PT/PTT, Plasma 05/17/2018 [facility] Referral Brush Cleaner Referral 05/17/2018 Jaret Horn MD Procedures None recorded. Surgeries None recorded. Imaging Electrocardiogram 05/17/2018 [facility] ([facility]) [facility]obby Medications Name Start Date alendronate 35 mg tablet Take 1 tablet every week by oral route for 84 days. furosemide 40 mg tablet Take 1 tablet every day by oral route for 90 days. Klor-Con M20 mEq tablet,extended release Take 2 tablets every day by oral route. leflunomide 20 mg tablet Take 1 tablet every day by oral route for 90 days. pramipexole 0.25 mg tablet Take 1 tablet every day by oral route at bedtime for 30 days. prednisone 1 mg tablet prednisone 5 mg tablet Ventolin HFA 90 mcg/actuation aerosol inhaler Inhale 2 puffs 3 times a day by inhalation route for 30 days. Xeljanz XR 11 mg tablet,extended release Take 1 tablet every day by oral route. Medications Administered None recorded. Vitals Height Weight BMI Blood Pressure 5 ft 8 in 230 lbs 35 kg/m2 126/78 mm[Hg] Lab Results None recorded. Allergies Code Code System Name Reaction Severity Status Onset NKDA Problems Name Status Onset Date Source Obstructive Sleep Apnea Syndrome Active 11/09/2016 Interstitial Lung Disease Active 11/09/2016 Rheumatoid Arthritis Active 11/09/2016 Osteoarthritis of Knee Active 11/09/2016 Polyp of Colon Active 01/29/2017 Internal Hemorrhoids Active 01/29/2017 Rheumatoid Lung Disease Active 01/04/2018 Long-term Current Use of Leflunomide Active 01/04/2018 Mixed Hyperlipidemia Active 04/11/2018 Impaired Glucose Tolerance Active 04/11/2018 Procedures Date Name Performed by 10/15/2016 Colonoscopy & Polypectomy Information not available 05/17/2018 Electrocardiogram [facility] ([facility]) [facility] [address] [place] [address] (Work Place) Vaccine List Vaccine Type influenza, injectable, quadrivalent, preservative free 04/08/20180.5 mL influenza, unspecified formulation 05/12/20160.5 mL pneumococcal polysaccharide PPV23 08/02/20150.5 mL Tdap 04/05/20170.5 mL Social History Smoking Status Never Smoker Past Encounters 05/17/2018 Pre-surgery Evaluation; Mixed Hyperlipidemia; Osteoarthritis of Knee; Rheumatoid Lung Disease; Idiopathic Pulmonary Fibrosis; Body Mass Index 30+ - Obesity; Morbid Obesity Owen Chong Jr, MD: [address], [address], [place] [address], Ph. History of Present Illness Note:Patient presents for lab pre-operative evaluation. Currently without new complaint. Review of Systems Comprehensive General Adult ROS Reported By: Patient Constitutional: Constitutional: no significant weight gain, no significant weight loss Cardiovascular: Cardiovascular: no chest pain, no shortness of breath when walking Respiratory: Respiratory: no cough, no wheezing, no shortness of breath Endocrine: Endocrine: no fatigue Physical Exam Cardiology Exam Reported By: Patient Constitutional: General Appearance: well-nourished, well-developed, appears stated age. Level of Distress: comfortable Lungs: Respiratory Effort: unlabored. Chest Exam: normal curvature, no thoracic deformity, no chest wall tenderness. Auscultation: clear, no wheezing, no rales, no rhonchi Cardiovascular: Rate And Rhythm: regular. Heart Sounds: normal S1, physiologically split S2, no rub, no gallop, no click. Systolic Murmur: not heard. Diastolic Murmur: not heard. Extremities: no cyanosis, no edema, no peripheral signs of emboli Peripheral Pulses: Pulses: full and equal in all extremities except if noted. Radial Pulse: normal Skin: Inspection and Palpation: warm and dry. Nails: no clubbing
[2018-06-10 10:47] LABS: BASOPHILS # (AUTO) 0.1 (0.0-0.1); BASOPHILS % 0.7 % (0.0-1.0); EOSINOPHILS # (AUTO) 0.1 (0.0-0.4); EOSINOPHILS % 1.8 % (0.0-6.0); HEMATOCRIT 41.2 % (38.2-49.6); HEMOGLOBIN 13.7 g/dL (14.0-18.0); LYMPHOCYTES # (AUTO) 0.9 (1.0-3.2); LYMPHOCYTES % 13.4 % (18.0-39.1); MEAN CORPUSCULAR HEMOGLOBIN 29.8 pg (28-32); MEAN CORPUSCULAR HGB CONC 33.3 g/dL (31-35); MEAN CORPUSCULAR VOLUME 89.8 fL (81-99); MONOCYTES # (AUTO) 0.9 (0.2-0.8); MONOCYTES % 12.7 % (4.4-11.3); NEUTROPHILS # (AUTO) 4.8 (2.1-6.9); NEUTROPHILS % 71.1 % (38.7-80.0); PLATELET COUNT 205 x10e3/uL (140-360); RED BLOOD COUNT 4.59 x10e6/uL (4.3-5.7); RED CELL DISTRIBUTION WIDTH 13.8 % (11.7-14.4)
[2018-06-10 11:04] LABS: ANION GAP 12.9 mmol/L (8-16); BLOOD UREA NITROGEN 14 mg/dL (7-26); BUN/CREATININE RATIO 16 (6-25); CALCIUM 9.4 mg/dL (8.4-10.2); CARBON DIOXIDE 25 mmol/L (22-29); CHLORIDE 103 mmol/L (98-107); CREATININE, SERUM 0.85 mg/dL (0.72-1.25); EST GLOMERULAR FILTRATION RATE > 60 ML/MIN (60-); GLUCOSE 90 mg/dL (74-118); POTASSIUM 3.9 mmol/L (3.5-5.1); SODIUM 137 mmol/L (136-145)
[2018-06-10 13:37] VITALS: BP 109/71
--- NOTE | 2018-06-11 03:41 | Operative Report ---
DATE OF PROCEDURE: 06/10/2018 SURGEON: Sameer Hitchcock MD PREOPERATIVE DIAGNOSIS: Mass of the right side of the perineum. POSTOPERATIVE DIAGNOSIS: Mass of the right side of the perineum. OPERATION PERFORMED: Resection of cystic mass of the right side of the perineum. ANESTHESIA: General. COMPLICATIONS: None. ESTIMATED BLOOD LOSS: Minimal. DESCRIPTION OF PROCEDURE: With the patient lying in the bed in the lithotomy position under good general anesthesia, the perineum was prepped with Betadine solution and draped in the usual manner. There was a palpable mass that extended from about the 11 o'clock position to about the 8 o'clock position along the right perineal area. An incision was made at the 10 o'clock position and immediately a hard cystic calcified mass was encountered, which was slowly and carefully dissected downward. Second incision was then made at the 8 o'clock position where there was a cystic part of the mass and the mass was completely resected and sent for pathological examination. Hemostasis was then ascertained. The area was then thoroughly irrigated, and the subcutaneous tissue was then reapproximated with interrupted sutures of 3-0 Vicryl, and the skin was closed with interrupted vertical mattress sutures of 3-0 silk. A dressing was applied. The sponge, lap, and needle count was correct. The patient tolerated the procedure well and returned to the recovery room in stable condition. Smaeer Hitchcock MD JLR/MODL /[id number]
== END | disposition home or self-care (01) ==
LOC: OR 09:18
PROVIDERS: ATTEND Surgery
DX: L08.89 Other specified local infections of the skin and subcutaneous tissue (principal); Z01.810 Encounter for preprocedural cardiovascular examination; Z01.812 Encounter for preprocedural laboratory examination; G47.33 Obstructive sleep apnea (adult) (pediatric); I10 Essential (primary) hypertension; J84.10 Pulmonary fibrosis, unspecified
CPT/HCPCS: 11426; 36415; 80048; 85025; 88304; 88312; 93005; J1100; J2001; J2250; J2405; J2704

== ENCOUNTER → 2018-07-22 | Day surgery (SDC) | payer MEDICARE ==
[2018-07-21 12:59] LABS: BASOPHILS # (AUTO) 0.1 (0.0-0.1); BASOPHILS % 0.5 % (0.0-1.0); EOSINOPHILS # (AUTO) 0.1 (0.0-0.4); EOSINOPHILS % 1.4 % (0.0-6.0); HEMATOCRIT 42.5 % (38.2-49.6); HEMOGLOBIN 14.1 g/dL (14.0-18.0); LYMPHOCYTES # (AUTO) 1.3 (1.0-3.2); LYMPHOCYTES % 13.8 % (18.0-39.1); MEAN CORPUSCULAR HEMOGLOBIN 30.6 pg (28-32); MEAN CORPUSCULAR HGB CONC 33.2 g/dL (31-35); MEAN CORPUSCULAR VOLUME 92.2 fL (81-99); MONOCYTES # (AUTO) 1.1 (0.2-0.8); MONOCYTES % 12.2 % (4.4-11.3); NEUTROPHILS # (AUTO) 6.6 (2.1-6.9); NEUTROPHILS % 71.5 % (38.7-80.0); PLATELET COUNT 209 x10e3/uL (140-360); RED BLOOD COUNT 4.61 x10e6/uL (4.3-5.7)
[2018-07-21 13:16] LABS: ANION GAP 11.9 mmol/L (8-16); BLOOD UREA NITROGEN 15 mg/dL (7-26); BUN/CREATININE RATIO 17 (6-25); CALCIUM 9.7 mg/dL (8.4-10.2); CARBON DIOXIDE 27 mmol/L (22-29); CHLORIDE 101 mmol/L (98-107); CREATININE, SERUM 0.86 mg/dL (0.72-1.25); EST GLOMERULAR FILTRATION RATE > 60 ML/MIN (60-); GLUCOSE 90 mg/dL (74-118); POTASSIUM 3.9 mmol/L (3.5-5.1); SODIUM 136 mmol/L (136-145)
--- NOTE | 2018-07-21 15:31 | Diagnostic Imaging Report ---
EXAMINATION: CHEST 2 VIEWS INDICATION: Mass on back. Preop ^PREOP ^[id number] ^1230 COMPARISON: None FINDINGS: TUBES and LINES: None. LUNGS: Lungs are well inflated. Mild chronic appearing changes in the lungs. Likely minimal atelectasis at the right lung base. There is no evidence of pneumonia or pulmonary edema. PLEURA: No pleural effusion or pneumothorax. HEART AND MEDIASTINUM: The cardiomediastinal silhouette is unremarkable. BONES AND SOFT TISSUES: No acute osseous lesion. Soft tissues are unremarkable. UPPER ABDOMEN: No free air under the diaphragm. IMPRESSION: Mild chronic appearing changes in the lungs. Likely minimal atelectasis at the right lung base. Signed by: Dr. Jasen Narvaez M.D. on 07/21/2018 3:28 PM
[~2018-07-22] MED LIST changes: +BUPIVACAINE 0.25% 30ML SDV INJ ONE; +BUPIVACAINE 0.25%/EPI 30ML SDV INJ ONE; -BUPIVACAINE 0.5%/EPI 30 ML SDV INJ ONE; -HYDROCODONE/APAP 7.5MG-325MG 1 EA TAB ONE; +LIDOCAINE HCL 1% LOCAL INJ 20 ML VIAL ONE; -LIDOCAINE JELLY 2% 10ML URO-JET ONE; -ONDANSETRON HCL INJ 2MG/ML 2ML 2 MG/ML VIAL ONE; -SEVOFLURANE INHAL SOLN 250 ML PEN BTL ONE
--- OUTSIDE RECORDS SUMMARY | 2018-07-22 07:46 | XMS REPORT ---
Author Author [facility] Address Unknown Phone Unavailable Care Team Providers Care Senior Svp Name Role Phone Juliet BRIAN Unavailable Unavailable Problems This patient has no known problems. Allergies, Adverse Reactions, Alerts This patient has no known allergies or adverse reactions. Medications This patient has no known medications. Results Test Description Test Time Test Comments Text Results Atomic Results Result Comments CHEST 2 VIEWS 2018-07-21 15:27:00 [place] [address] Patient Name: ROMELIA CUNNINGHAM MR #: [id number] : 1960 Age/Sex: 57/M Req #: [id number] [facility] Physician: Ordered by: RACQUEL BRIAN MD Report #: [id number] Location: OR Room/Bed: Procedure: [id number] DX/CHEST 2 VIEWS Exam Date: 07/21/18 Exam Time: 1230 REPORT STATUS: Signed EXAMINATION: CHEST 2 VIEWS INDICATION: Mass on back. Preop PREOP [id number] 1230 COMPARISON: None FINDINGS: TUBES and LINES: None. LUNGS: Lungs are well inflated. Mild chronic appearing changes in the lungs. Likely minimal atelectasis at the right lung base. There is no evidence of pneumonia or pulmonary edema. PLEURA: No pleural effusion or pneumothorax. HEART AND MEDIASTINUM: The cardiomediastinal silhouette is unremarkable. BONES AND SOFT TISSUES: No acute osseous lesion. Soft tissues are unremarkable. UPPER ABDOMEN: No free air under the diaphragm. IMPRESSION: Mild chronic appearing changes in the lungs. Likely minimal atelectasis at the right lung base. Signed by: Dr. Jasen Narvaez M.D. on 07/21/2018 3:28 PM Dictated By: JASEN NARVAEZ MD, MD 1528 Transcribed By: AMADA on 07/21/18 1528 COPY TO: RACQUEL BRIAN MD
--- OUTSIDE RECORDS SUMMARY | 2018-07-22 07:46 | XMS REPORT ---
Author Author Danii Joseph Organization [employer] Address Unknown Phone Unavailable Care Team Providers Care Setup Operator Name Role Phone Danii Joseph CP Unavailable Allergies, Adverse Reactions, Alerts Substance Reaction Event Type N.K.D.A. 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 Active Problem Sciatica of left side M54.32 Active Problem Special screening for osteoporosis Z13.820 Active Medications Medication Code System Code Instructions Start Date End Date Status Dosage Furosemide [facility] 99647415433 40 MG/4ML Orally Twice a day Active 1 ml PredniSONE ND 42269475717 5MG orally once a day Active 1 tablet Xeljanz XR ND 25197548614 11 MG Orally Once a day Active 1 tablet Klor-Con M20 ND 44655133795 20 MEQ Orally Once a day Active 1 tablet with food Alendronate Sodium ND 51044723457 35 MG Orally Once a day Apr 05, 2018 Active 1 tablet Leflunomide ND 26493312577 20MG Orally Once a day May 27, 2017 Active 1 tablet Tylenol ND 94287688954 325 MG Orally every 4 hrs Active 1 tablet as needed Vital Signs Date/Time: July 01, 2018 BMI 35.35 Index Weight 232.5 lbs Height 68 in Temperature 96.4 F Cardiac Monitoring Heart Rate 84 /min Blood Pressure Diastolic 82 mm Hg Blood Pressure Systolic 130 mm Hg Results No Known Results Summary Purpose [employer] Submission
--- OUTSIDE RECORDS SUMMARY | 2018-07-22 07:46 | XMS REPORT ---
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
--- OUTSIDE RECORDS SUMMARY | 2018-07-22 07:46 | XMS REPORT | Continuity of Care Document ---
Author Author [facility] Interface Address Unknown Phone Unavailable Problems Problem Status Onset Date Classification Date Reported Comments Source Morbid obesity 05/17/2018 Diagnosis 05/17/2018 [facility] Idiopathic pulmonary fibrosis 05/17/2018 Diagnosis 05/17/2018 [facility] Body mass index 30+ - obesity 05/17/2018 Diagnosis 05/17/2018 [facility] Rheumatoid lung disease 05/17/2018 Diagnosis 05/17/2018 [facility] Pre-surgery evaluation 05/17/2018 Diagnosis 05/17/2018 [facility] Osteoarthritis of knee 05/17/2018 Diagnosis 05/17/2018 [facility] Mixed hyperlipidemia 05/17/2018 Diagnosis 05/17/2018 [facility] Mixed Hyperlipidemia 04/11/2018 Problem 05/17/2018 [facility] Impaired Glucose Tolerance 04/11/2018 Problem 05/17/2018 [facility] Rheumatoid Lung Disease 01/04/2018 Problem 05/17/2018 [facility] Long-term Current Use of Leflunomide 01/04/2018 Problem 05/17/2018 [facility] Cough 07/27/2017 Diagnosis 07/28/2017 [facility] Hyponatremia 07/27/2017 Diagnosis 07/28/2017 [facility] Hypocalcemia 07/27/2017 Diagnosis 07/28/2017 [facility] Adult health examination 07/27/2017 Diagnosis 07/28/2017 [facility] Advance directive discussed with patient 07/27/2017 Diagnosis 07/28/2017 [facility] Depression screening 07/27/2017 Diagnosis 07/28/2017 [facility] Tachycardia 07/23/2017 Diagnosis 07/28/2017 [facility] Hypovolemia 07/23/2017 Diagnosis 07/28/2017 [facility] Influenza 07/23/2017 Diagnosis 07/28/2017 [facility] Fever 07/23/2017 Diagnosis 07/28/2017 [facility] Upper respiratory infection 07/23/2017 Diagnosis 07/28/2017 [facility] Pain in right shoulder 07/20/2017 10/19/2017 [facility] RT SHOULDER Active 06/03/2017 [facility] Immunization 04/05/2017 Diagnosis 07/28/2017 [facility] Onychomycosis of toenails 04/05/2017 Diagnosis 07/28/2017 [facility] Long-term current use of drug therapy 04/05/2017 Diagnosis 07/28/2017 [facility] Hepatitis C screening 04/05/2017 Diagnosis 07/28/2017 [facility] Idiopathic Pulmonary Fibrosis 04/05/2017 Problem 07/28/2017 [facility] Contact dermatitis 03/05/2017 Diagnosis 07/28/2017 [facility] Obstructive sleep apnea syndrome 03/05/2017 Diagnosis 07/28/2017 [facility] Interstitial lung disease 03/05/2017 Diagnosis 07/28/2017 [facility] Polyp of Colon 01/29/2017 Problem 05/17/2018 [facility] Internal Hemorrhoids 01/29/2017 Problem 05/17/2018 [facility] Tinea corporis 11/09/2016 Diagnosis 07/28/2017 [facility] Peripheral edema 11/09/2016 Diagnosis 07/28/2017 [facility] Rheumatoid arthritis 11/09/2016 Diagnosis 07/28/2017 [facility] Obstructive Sleep Apnea Syndrome 11/09/2016 Problem 05/17/2018 [facility] Interstitial Lung Disease 11/09/2016 Problem 05/17/2018 [facility] Rheumatoid Arthritis 11/09/2016 Problem 05/17/2018 [facility] Osteoarthritis of Knee 11/09/2016 Problem 05/17/2018 [facility] Osteoarthritis, knee Active Problem 07/07/2018 [facility] Sciatica of left side Active Problem 07/07/2018 [facility] Rheumatoid arthritis with positive rheumatoid factor Active Diagnosis 07/07/2018 [facility] 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 Active Problem 07/07/2018 [facility] Special screening for osteoporosis Active Problem 07/07/2018 [facility] Other prison drug therapy Active Diagnosis 07/07/2018 [facility] Osteopenia Active Diagnosis 07/07/2018 [facility] Muscle weakness 10/19/2017 [facility] Medications Medication Details Route Status Patient Instructions Ordering Provider Order Date Source Alendronate Sodium 1 tablet Orally Active 35 MG Orally Once a day Opal 04/05/2018 [facility] Alendronate Sodium 1 tablet Orally Active 35 MG Orally Once a week Opal 09/14/2017 [facility] Xeljanz XR 1 tablet Orally Active 11 MG Orally Once a day [place] 05/27/2017 [facility] PredniSONE 1 tablet Orally Active 7mg Orally Once a day Opal 05/27/2017 [facility] Tramadol HCl 1 tablet as needed Orally Active 50 MG Orally once a day Opal 05/27/2017 [facility] Leflunomide 1 tablet Orally Active 20MG Orally Once a day Opal 05/27/2017 [facility] Betamethasone 0.5 MG/ML Topical Cream betamethasone dipropionate 0.05 % topical cream Active 03/05/2017 [facility] Clotrimazole 10 MG/ML Topical Cream clotrimazole 1 % topical cream Active 03/05/2017 [facility] Betamethasone 0.5 MG/ML / Clotrimazole 10 MG/ML Topical Cream clotrimazole-betamethasone 1 %-0.05 % topical cream APPLY CREAM TOPICALLY TO AFFECTED AREA TWICE DAILY IN THE MORNING AND EVENING FOR 2 WEEKS Active 03/05/2017 [facility] POLYETHYLENE GLYCOL 3350 787832 MG / Potassium Chloride 1480 MG / Sodium Bicarbonate 5720 MG / Sodium Chloride 81384 MG Powder for Oral Solution peg-electrolyte solution 420 gram oral solution Active 03/05/2017 [facility] Amoxicillin 500 MG Oral Capsule amoxicillin 500 mg capsule Active 11/09/2016 [facility] Azithromycin 250 MG Oral Tablet azithromycin 250 mg tablet Active 11/09/2016 [facility] Cefuroxime 500 MG Oral Tablet cefuroxime axetil 500 mg tablet Active 11/09/2016 [facility] Diclofenac Sodium 0.01 MG/MG Topical Gel diclofenac 1 % topical gel Active 11/09/2016 [facility] gabapentin 100 MG Oral Capsule gabapentin 100 mg capsule Active 11/09/2016 [facility] Acetaminophen 325 MG / Hydrocodone Bitartrate 7.5 MG Oral Tablet hydrocodone 7.5 mg-acetaminophen 325 mg tablet Active 11/09/2016 [facility] Ibuprofen 800 MG Oral Tablet ibuprofen 800 mg tablet Active 11/09/2016 [facility] methylprednisolone 4 mg tablets in a dose pack methylprednisolone 4 mg tablets in a dose pack Active 11/09/2016 [facility] Suprep Bowel Prep Kit 17.5 gram-3.13 gram-1.6 gram oral solution Suprep Bowel Prep Kit 17.5 gram-3.13 gram-1.6 gram oral solution Active 11/09/2016 [facility] terbinafine 250 MG Oral Tablet terbinafine HCl 250 mg tablet Active 11/09/2016 [facility] Leflunomide TAKE ONE TABLET BY MOUTH ONCE DAILY Orally Active 20MG Orally Once a day 06/18/2016 [facility] Xeljanz XR 1 tablet Orally Active 11 MG Orally Once a day 03/24/2016 [facility] Furosemide 1 ml Orally Active 40 MG/4ML Orally Twice a day Opal [facility] Klor-Con M20 1 tablet with food Orally Active 20 MEQ Orally Once a day [facility] Potassium 1 tablet Orally Active 75 MG Orally Once a day [facility] Pramipexole Dihydrochloride 1 tablet before bedtime Orally Active 0.25 MG Orally Once a day Opal [facility] PredniSONE 1 tablet Orally Active 7mg Orally Once a day Opal [facility] Alendronate Sodium TAKE 1 TABLET BY MOUTH ONCE A WEEK NA Active 35MG Opal [facility] PredniSONE 1 tablet orally Active 5MG orally once a day [facility] Xeljanz XR 1 tablet Orally Active 11 MG Orally Once a day Opal [facility] Alendronate Sodium 1 tablet Orally Active 35 MG Orally Once a week Opal [facility] Tylenol 1 tablet as needed Orally Active 325 MG Orally every 4 hrs Opal [facility] Alendronic acid 35 MG Oral Tablet alendronate 35 mg tablet Take 1 tablet every week by oral route for 84 days. Active [facility] Furosemide 40 MG Oral Tablet furosemide 40 mg tablet Take 1 tablet every day by oral route for 90 days. Active [facility] Microencapsulated Potassium Chloride 20 MEQ Extended Release Oral Tablet [Klor-Con] Klor-Con M20 mEq tablet,extended release Take 2 tablets every day by oral route. Active [facility] leflunomide 20 MG Oral Tablet leflunomide 20 mg tablet Take 1 tablet every day by oral route for 90 days. Active [facility] Pramipexole dihydrochloride 0.25 MG Oral Tablet pramipexole 0.25 mg tablet Take 1 tablet every day by oral route at bedtime for 30 days. Active [facility] Prednisone 1 MG Oral Tablet prednisone 1 mg tablet Active [facility] Prednisone 5 MG Oral Tablet prednisone 5 mg tablet Active [facility] Albuterol 0.09 MG/ACTUAT Metered Dose Inhaler Ventolin HFA 90 mcg/actuation aerosol inhaler Inhale 2 puffs 3 times a day by inhalation route for 30 days. Active [facility] 24 HR tofacitinib 11 MG Extended Release Oral Tablet [Xeljanz] Xeljanz XR 11 mg tablet,extended release Take 1 tablet every day by oral route. Active [facility] benzonatate 200 MG Oral Capsule benzonatate 200 mg capsule Take 1 capsule 3 times a day by oral route for 10 days. Active [facility] Doxepin Hydrochloride 50 MG/ML Topical Cream doxepin 5 % topical cream Active [facility] 12 HR Guaifenesin 600 MG Extended Release Oral Tablet guaifenesin ER 600 mg tablet, extended release 12 hr Take 1 tablet every 12 hours by oral route. Active [facility] Levofloxacin 500 MG Oral Tablet levofloxacin 500 mg tablet Take 1 tablet every 24 hours by oral route after meals for 10 days. Active [facility] Oseltamivir 75 MG Oral Capsule oseltamivir 75 mg capsule Active [facility] prednisone prednisone 7 mg once daily as directed Active [facility] tramadol hydrochloride 50 MG Oral Tablet tramadol 50 mg tablet Active [facility] 200 ACTUAT Albuterol 0.09 MG/ACTUAT Metered Dose Inhaler [Ventolin] Ventolin HFA 90 mcg/actuation aerosol inhaler Inhale 2 puffs 3 times a day by inhalation route for 30 days. Active [facility] Allergies, Adverse Reactions, Alerts Substance Category Reaction Severity Reaction type Status Date Reported Comments Source N.K.D.A. Adverse Reaction Info Not Available Ad[facility] Immunization Date Given Site Status Last Updated Comments Source influenza, injectable, quadrivalent, preservative free 04/08/2018 completed [facility] Tdap 04/05/2017 completed [facility] influenza, unspecified formulation 05/12/2016 completed [facility] pneumococcal polysaccharide PPV23 08/02/2015 completed [facility] Results Order Name Results Value Reference Range Date Interpretation Comments Source Comprehensive metabolic 1999 panel - Serum or Plasma ALT 27 U/L 0 - 55 07/27/2017 [facility] metabolic 1999 panel - Serum or Plasma AST 29 U/L 5 - 34 07/27/2017 [facility] Comprehensive metabolic 1999 panel - Serum or Plasma BUN 15.2 mg/dL 8.4 - 25.7 07/27/2017 [facility] metabolic 1999 panel - Serum or Plasma alk phos 48 unit/L 40 - 150 07/27/2017 [facility] Comprehensive metabolic 1999 panel - Serum or Plasma glucose 110 mg/dL 70 - 99 07/27/2017 [facility] Comprehensive metabolic 1999 panel - Serum or Plasma albumin 3.5 g/dL 3.5 - 5.0 07/27/2017 [facility] Comprehensive metabolic 1999 panel - Serum or Plasma creatinine 1.02 mg/dL 0.72 - 1.25 07/27/2017 [facility] Comprehensive metabolic 1999 panel - Serum or Plasma eGFR non- >60 >60 07/27/2017 [facility] Comprehensive metabolic 1999 panel - Serum or Plasma total bilirubin 0.6 mg/dL 0.2 - 1.2 07/27/2017 [facility] Comprehensive metabolic 1999 panel - Serum or Plasma eGFR - >60 >60 07/27/2017 [facility] Comprehensive metabolic 1999 panel - Serum or Plasma sodium 132 mEq/L 136 - 145 07/27/2017 [facility] Comprehensive metabolic 1999 panel - Serum or Plasma potassium 4.1 mEq/L 3.5 - 5.1 07/27/2017 [facility] Comprehensive metabolic 1999 panel - Serum or Plasma chloride 96 mmol/L 98 - 107 07/27/2017 [facility] Comprehensive metabolic 1999 panel - Serum or Plasma total protein 6.8 g/dL 6.4 - 8.3 07/27/2017 [facility] Comprehensive metabolic 1999 panel - Serum or Plasma calcium 8.0 mg/dL 8.4 - 10.2 07/27/2017 [facility] Comprehensive metabolic 1999 panel - Serum or Plasma CO2 24.6 mmol/L 22.0 - 29.0 07/27/2017 [facility] Comprehensive metabolic 1999 panel - Serum or Plasma anion gap 11 calc 07/27/2017 [facility] CBC W Auto Differential panel - Blood white blood cell count 12.1 thousand/uL 3.8 - 10.8 07/24/2017 [facility] CBC W Auto Differential panel - Blood red blood cell count 4.64 million/uL 4.20 - 5.80 07/24/2017 [facility] CBC W Auto Differential panel - Blood hemoglobin 14.0 g/dL 13.2 - 17.1 07/24/2017 [facility] CBC W Auto Differential panel - Blood hematocrit 40.6 % 38.5 - 50.0 07/24/2017 [facility] CBC W Auto Differential panel - Blood MCV 87.5 fL 80.0 - 100.0 07/24/2017 [facility] CBC W Auto Differential panel - Blood MCH 30.2 pg 27.0 - 33.0 07/24/2017 [facility] CBC W Auto Differential panel - Blood MCHC 34.5 g/dL 32.0 - 36.0 07/24/2017 [facility] CBC W Auto Differential panel - Blood RDW 13.3 % 11.0 - 15.0 07/24/2017 [facility] CBC W Auto Differential panel - Blood platelet count 166 thousand/uL 140 - 400 07/24/2017 [facility] CBC W Auto Differential panel - Blood MPV 10.8 fL 7.5 - 12.5 07/24/2017 [facility] CBC W Auto Differential panel - Blood absolute neutrophils 9390 cells/uL 1500 - 7800 07/24/2017 [facility] CBC W Auto Differential panel - Blood absolute lymphocytes 1186 cells/uL 850 - 3900 07/24/2017 [facility] CBC W Auto Differential panel - Blood absolute monocytes 1488 cells/uL 200 - 950 07/24/2017 [facility] CBC W Auto Differential panel - Blood absolute eosinophils 0 cells/uL 15 - 500 07/24/2017 [facility] CBC W Auto Differential panel - Blood absolute basophils 36 cells/uL 0 - 200 07/24/2017 [facility] CBC W Auto Differential panel - Blood neutrophils 77.6 % 07/24/2017 [facility] CBC W Auto Differential panel - Blood lymphocytes 9.8 % 07/24/2017 [facility] CBC W Auto Differential panel - Blood monocytes 12.3 % 07/24/2017 [facility] CBC W Auto Differential panel - Blood eosinophils 0.0 % 07/24/2017 [facility] CBC W Auto Differential panel - Blood basophils 0.3 % 07/24/2017 [facility] Urinalysis macro (dipstick) panel - Urine Color Color yellow 07/23/2017 [facility] Urinalysis macro (dipstick) panel - Urine Color Appearance clear 07/23/2017 [facility] Urinalysis macro (dipstick) panel - Urine Color Glucose negative 07/23/2017 [facility] Urinalysis macro (dipstick) panel - Urine Color Bilirubin negative 07/23/2017 [facility] Urinalysis macro (dipstick) panel - Urine Color Ketones negative 07/23/2017 [facility] Urinalysis macro (dipstick) panel - Urine Color Specific [place] 1.010 07/23/2017 [facility] Urinalysis macro (dipstick) panel - Urine Color Blood negative 07/23/2017 [facility] Urinalysis macro (dipstick) panel - Urine Color PH 6.0 07/23/2017 [facility] Urinalysis macro (dipstick) panel - Urine Color Protein trace 07/23/2017 [facility] Urinalysis macro (dipstick) panel - Urine Color Urobilinogen 0.2 07/23/2017 [facility] Urinalysis macro (dipstick) panel - Urine Color Nitrites negative 07/23/2017 [facility] Urinalysis macro (dipstick) panel - Urine Color Leukocytes negative 07/23/2017 [facility] Hepatitis C virus RNA [Units/volume] (viral load) in Serum or Plasma by Probe and target amplification method hepatitis C antibody non-reactive non 04/06/2017 [facility] Hepatitis C virus RNA [Units/volume] (viral load) in Serum or Plasma by Probe and target amplification method signal to cut-off 0.03 <1.00 04/06/2017 [facility] Hemoglobin A1c/Hemoglobin.total in Blood hemoglobin A1C 5.3 %_of_total_HGB <5.7 04/06/2017 [facility] Hemoglobin A1c/Hemoglobin.total in Blood EAG (mg/dL) 105 (calc) 04/06/2017 [facility] Hemoglobin A1c/Hemoglobin.total in Blood EAG (mmol/L) 5.8 (calc) 04/06/2017 [facility] Comprehensive metabolic 1999 panel - Serum or Plasma glucose 79 mg/dL 65 - 99 04/06/2017 [facility] Comprehensive metabolic 1999 panel - Serum or Plasma urea nitrogen (BUN) 13 mg/dL 7 - 25 04/06/2017 [facility] Comprehensive metabolic 1999 panel - Serum or Plasma creatinine 0.90 mg/dL 0.70 - 1.33 04/06/2017 [facility] Comprehensive metabolic 1999 panel - Serum or Plasma eGFR non-afr. icelandic 94 mL/min/1.73m2 > or=60 04/06/2017 [facility] Comprehensive metabolic 1999 panel - Serum or Plasma eGFR 109 mL/min/1.73m2 > or=60 04/06/2017 [facility] Comprehensive metabolic 1999 panel - Serum or Plasma BUN/creatinine ratio not applicable 6 - 22 04/06/2017 [facility] Comprehensive metabolic 1999 panel - Serum or Plasma sodium 142 mmol/L 135 - 146 04/06/2017 [facility] Comprehensive metabolic 1999 panel - Serum or Plasma potassium 4.2 mmol/L 3.5 - 5.3 04/06/2017 [facility] Comprehensive metabolic 1999 panel - Serum or Plasma chloride 104 mmol/L 98 - 110 04/06/2017 [facility] Comprehensive metabolic 1999 panel - Serum or Plasma carbon dioxide 27 mmol/L 20 - 31 04/06/2017 [facility] Comprehensive metabolic 1999 panel - Serum or Plasma calcium 9.3 mg/dL 8.6 - 10.3 04/06/2017 [facility] Comprehensive metabolic 1999 panel - Serum or Plasma protein, total 6.7 g/dL 6.1 - 8.1 04/06/2017 [facility] Comprehensive metabolic 1999 panel - Serum or Plasma albumin 4.3 g/dL 3.6 - 5.1 04/06/2017 [facility] Comprehensive metabolic 1999 panel - Serum or Plasma globulin 2.4 g/dL_(calc) 1.9 - 3.7 04/06/2017 [facility] Comprehensive metabolic 1999 panel - Serum or Plasma albumin/globulin ratio 1.8 (calc) 1.0 - 2.5 04/06/2017 [facility] Comprehensive metabolic 1999 panel - Serum or Plasma bilirubin, total 0.5 mg/dL 0.2 - 1.2 04/06/2017 [facility] Comprehensive metabolic 1999 panel - Serum or Plasma alkaline phosphatase 50 U/L 40 - 115 04/06/2017 [facility] Comprehensive metabolic 1999 panel - Serum or Plasma AST 20 U/L 10 - 35 04/06/2017 [facility] Comprehensive metabolic 1999 panel - Serum or Plasma ALT 23 U/L 9 - 46 04/06/2017 [facility] Prostate specific Ag [Mass/volume] in Serum or Plasma PSA, total 1.0 NG/mL < or=4.0 09/18/2016 [facility] PT and aPTT panel - Platelet poor plasma by Coagulation assay partial thromboplastin time, activated 27 sec 22 - 34 09/18/2016 [facility] PT and aPTT panel - Platelet poor plasma by Coagulation assay INR 1.0 09/18/2016 [facility] PT and aPTT panel - Platelet poor plasma by Coagulation assay PT 10.4 sec 9.0 - 11.5 09/18/2016 [facility] Lipid 1995 panel - Serum or Plasma cholesterol, total 231 mg/dL 125 - 200 09/18/2016 [facility] Lipid 1995 panel - Serum or Plasma HDL cholesterol 41 mg/dL > or=40 09/18/2016 [facility] Lipid 1995 panel - Serum or Plasma triglycerides 160 mg/dL <150 09/18/2016 [facility] Lipid 1995 panel - Serum or Plasma LDL-cholesterol 158 mg/dL_(calc) <130 09/18/2016 [facility] Lipid 1995 panel - Serum or Plasma chol/HDLC ratio 5.6 (calc) < or=5.0 09/18/2016 [facility] Lipid 1995 panel - Serum or Plasma non HDL cholesterol 190 mg/dL_(calc) 09/18/2016 [facility] Comprehensive metabolic 1999 panel - Serum or Plasma glucose 90 mg/dL 65 - 99 09/18/2016 [facility] Comprehensive metabolic 1999 panel - Serum or Plasma urea nitrogen (BUN) 15 mg/dL 7 - 25 09/18/2016 [facility] Comprehensive metabolic 1999 panel - Serum or Plasma creatinine 0.91 mg/dL 0.70 - 1.33 09/18/2016 [facility] Comprehensive metabolic 1999 panel - Serum or Plasma eGFR non-afr. icelandic 93 mL/min/1.73m2 > or=60 09/18/2016 [facility] Comprehensive metabolic 1999 panel - Serum or Plasma eGFR 108 mL/min/1.73m2 > or=60 09/18/2016 [facility] Comprehensive metabolic 1999 panel - Serum or Plasma BUN/creatinine ratio not applicable 6 - 22 09/18/2016 [facility] Comprehensive metabolic 1999 panel - Serum or Plasma sodium 142 mmol/L 135 - 146 09/18/2016 [facility] Comprehensive metabolic 1999 panel - Serum or Plasma potassium 3.9 mmol/L 3.5 - 5.3 09/18/2016 [facility] Comprehensive metabolic 1999 panel - Serum or Plasma chloride 104 mmol/L 98 - 110 09/18/2016 [facility] Comprehensive metabolic 1999 panel - Serum or Plasma carbon dioxide 25 mmol/L 20 - 31 09/18/2016 [facility] Comprehensive metabolic 2000 panel - Serum or Plasma calcium 9.4 mg/dL 8.6 - 10.3 09/18/2016 [facility] Comprehensive metabolic 1999 panel - Serum or Plasma protein, total 7.0 g/dL 6.1 - 8.1 09/18/2016 [facility] Comprehensive metabolic 2000 panel - Serum or Plasma albumin 4.5 g/dL 3.6 - 5.1 09/18/2016 [facility] Comprehensive metabolic 2000 panel - Serum or Plasma globulin 2.5 g/dL_(calc) 1.9 - 3.7 09/18/2016 [facility] Comprehensive metabolic 2000 panel - Serum or Plasma albumin/globulin ratio 1.8 (calc) 1.0 - 2.5 09/18/2016 [facility] Comprehensive metabolic 1999 panel - Serum or Plasma bilirubin, total 0.7 mg/dL 0.2 - 1.2 09/18/2016 [facility] Comprehensive metabolic 1999 panel - Serum or Plasma alkaline phosphatase 55 U/L 40 - 115 09/18/2016 [facility] Comprehensive metabolic 2000 panel - Serum or Plasma AST 16 U/L 10 - 35 09/18/2016 [facility] Comprehensive metabolic 2000 panel - Serum or Plasma ALT 18 U/L 9 - 46 09/18/2016 [facility] Thyrotropin [Units/volume] in Serum or Plasma TSH 1.94 mIU/L 0.40 - 4.50 09/18/2016 [facility] CBC W Auto Differential panel - Blood white blood cell count 8.2 thousand/uL 3.8 - 10.8 09/18/2016 [facility] CBC W Auto Differential panel - Blood red blood cell count 4.55 million/uL 4.20 - 5.80 09/18/2016 [facility] CBC W Auto Differential panel - Blood hemoglobin 13.9 g/dL 13.2 - 17.1 09/18/2016 [facility] CBC W Auto Differential panel - Blood hematocrit 42.2 % 38.5 - 50.0 09/18/2016 [facility] CBC W Auto Differential panel - Blood MCV 92.7 fL 80.0 - 100.0 09/18/2016 [facility] CBC W Auto Differential panel - Blood MCH 30.7 pg 27.0 - 33.0 09/18/2016 [facility] CBC W Auto Differential panel - Blood MCHC 33.1 g/dL 32.0 - 36.0 09/18/2016 [facility] CBC W Auto Differential panel - Blood RDW 14.8 % 11.0 - 15.0 09/18/2016 [facility] CBC W Auto Differential panel - Blood platelet count 196 thousand/uL 140 - 400 09/18/2016 [facility] CBC W Auto Differential panel - Blood MPV 9.1 fL 7.5 - 12.5 09/18/2016 [facility] CBC W Auto Differential panel - Blood absolute neutrophils 5879 cells/uL 1500 - 7800 09/18/2016 [facility] CBC W Auto Differential panel - Blood absolute lymphocytes 1656 cells/uL 850 - 3900 09/18/2016 [facility] CBC W Auto Differential panel - Blood absolute monocytes 558 cells/uL 200 - 950 09/18/2016 [facility] CBC W Auto Differential panel - Blood absolute eosinophils 82 cells/uL 15 - 500 09/18/2016 [facility] CBC W Auto Differential panel - Blood absolute basophils 25 cells/uL 0 - 200 09/18/2016 [facility] CBC W Auto Differential panel - Blood neutrophils 71.7 % 09/18/2016 [facility] CBC W Auto Differential panel - Blood lymphocytes 20.2 % 09/18/2016 [facility] CBC W Auto Differential panel - Blood monocytes 6.8 % 09/18/2016 [facility] CBC W Auto Differential panel - Blood eosinophils 1.0 % 09/18/2016 [facility] CBC W Auto Differential panel - Blood basophils 0.3 % 09/18/2016 [facility] Vital Signs Vital Sign Value Date Comments Source Weight 232.5 07/01/2018 [facility] Height 68 07/01/2018 [facility] Temperature Oral (F) 96.4 F 07/01/2018 [facility] [place] Heart Rate 84 07/01/2018 [facility] Diastolic (mm Hg) 82 07/01/2018 [facility] [place] Systolic (mm Hg) 130 07/01/2018 [facility] [place] Diastolic (mm Hg) 78 05/17/2018 [facility] Height 68 05/17/2018 [facility] Systolic (mm Hg) 126 05/17/2018 [facility] Weight 230 05/17/2018 [facility] Weight 226 04/01/2018 [facility] [place] Height 68 [...] [place] Diastolic (mm Hg) 70 09/10/2017 [facility] Systolic (mm Hg) 112 09/10/2017 [facility] Diastolic (mm Hg) 84 07/27/2017 [facility] Height 68 07/27/2017 [facility] Systolic (mm Hg) 122 07/27/2017 [facility] Weight 224 07/27/2017 [facility] Diastolic (mm Hg) 80 07/23/2017 [facility] Height 68 07/23/2017 [facility] Systolic (mm Hg) 132 07/23/2017 [facility] Weight 224 07/23/2017 [facility] Weight 233 06/15/2017 [facility] Height 68 [...] Systolic (mm Hg) 128 05/27/2017 [facility] Diastolic (mm Hg) 84 04/05/2017 [facility] Height 68 04/05/2017 [facility] Systolic (mm Hg) 122 04/05/2017 [facility] Weight 230 04/05/2017 [facility] Diastolic (mm Hg) 80 03/05/2017 [facility] Height 68 03/05/2017 [facility] Systolic (mm Hg) 130 03/05/2017 [facility] Weight 231 03/05/2017 [facility] Weight 230 03/01/2017 [facility] Height 68 03/01/2017 [facility] [place] Temperature Oral (F) 97.9 F 03/01/2017 [facility] Heart Rate 84 03/01/2017 [facility] [place] Diastolic (mm Hg) 74 03/01/2017 [facility] Systolic (mm Hg) 132 03/01/2017 [facility] Diastolic (mm Hg) 82 11/09/2016 [facility] Height 68 11/09/2016 [facility] Systolic (mm Hg) 130 11/09/2016 [facility] Weight 231.4 11/09/2016 [facility] Encounters Location Location Details Encounter Type Encounter Number Reason For Visit Attending Provider ADM Date DC Date Status Source [place] - [facility] - [facility]Hobrafa Chong Jr, MD: [address] [facility] [address], [place] [address], Ph. [id number] Owen Chong Jr 11/09/2016 [facility] - [facility]Hobrafa Stark MD: [address] [facility] [address], [place] [address], Ph. [id number] Ernie Stark 03/05/2017 [facility] - [facility]Hobrafa Cordon MD: [address], [place] [address], Ph. [id number] Matteo Romelore 04/05/2017 [place] [facility] [id number] Danii Nunezf 06/14/2017 07/14/2017 [facility] - [facility]-Joy Chong Jr, MD: [address], [place] [address], Ph. [id number] Owen Chong Jr 07/23/2017 [facility] - [facility]Hobrafa Cordon MD: [address], [place] [address], Ph. [id number] [facility] Bravo 07/27/2017 [facility] - V[facility]-Joy Chong Jr, MD: [address], [place] [address], Ph. [id number] Owen Chong Jr 05/17/2018 [facility] Procedures Procedure Code Date Perfomer Comments Source electrocardiogram 05/17/2018 [facility] [id number] RADIOLOGIC EXAMINATION, CHEST [id number] 07/27/2017 [facility] electrocardiogram 11/09/2016 [facility] Colonoscopy & Polypectomy [id number] 10/15/2016 [facility]
[2018-07-22 12:35] VITALS: BP 116/79
--- NOTE | 2018-07-22 19:07 | Operative Report ---
DATE OF PROCEDURE: 07/22/2018 SURGEON: Sameer Hitchcock MD PREOPERATIVE DIAGNOSIS: Cystic mass of the right posterior shoulder. POSTOPERATIVE DIAGNOSIS: Cystic mass of the right posterior shoulder. OPERATION PERFORMED: Resection of cystic mass of the right posterior shoulder. ANESTHESIA: Local 1% Xylocaine and MAC. COMPLICATIONS: None. ESTIMATED BLOOD LOSS: Minimal. DESCRIPTION OF PROCEDURE: With the patient lying in bed in the lateral position under good IV sedation, the posterior right shoulder was prepped with Betadine solution and draped in the usual manner. The area surrounding the mass was then infiltrated with 1% Xylocaine solution. An elliptical incision was made to include the skin overlying the mass and was taken down through the subcutaneous tissue. The mass was identified and preserved during the entire dissection and resected all the way down to the muscle. The lesion was sent for pathological examination. The whole area was then thoroughly irrigated. Perfect hemostasis was ascertained. The subcutaneous tissue was approximated with 3-0 Vicryl and the skin was closed with interrupted vertical mattress sutures of 3-0 silk. A dressing was applied. The sponge, lap, and needle count was correct. The patient tolerated the procedure well and returned to the recovery room in stable condition. Sameer Hitchcock MD JLR/MODL /[id number]
== END | disposition home or self-care (01) ==
LOC: OR 07:42
PROVIDERS: ATTEND Surgery
DX: L72.0 Epidermal cyst (principal); I10 Essential (primary) hypertension; J84.10 Pulmonary fibrosis, unspecified; G47.33 Obstructive sleep apnea (adult) (pediatric); M19.90 Unspecified osteoarthritis, unspecified site; Z01.812 Encounter for preprocedural laboratory examination; Z01.818 Encounter for other preprocedural examination
CPT/HCPCS: 23076; 36415; 71046; 80048; 85025; 88304; J1100; J2001 ×2; J2250; J2704

== ENCOUNTER 2018-10-03 08:01 | Observation (INO) | payer MEDICARE ==
[~2018-10-03] VITALS: Ht 172.7 cm; Wt 105.2 kg
[~2018-10-03 08:01] MED LIST changes: -BUPIVACAINE 0.25% 30ML SDV INJ ONE; -BUPIVACAINE 0.25%/EPI 30ML SDV INJ ONE; -DEXAMETHASONE SOD PHOS INJ 4 MG/ML VIAL ONE; -FENTANYL CITRATE/PF 100MCG/2 ML INJ ONE; -LIDOCAINE HCL 1% LOCAL INJ 20 ML VIAL ONE; -LIDOCAINE HCL 2% LOCAL INJ 5 ML SDV VIAL INJ ONE; -MIDAZOLAM HCL 2 MG/2 ML VIAL ONE; -PROPOFOL IV EMULSION 10 MG/ML 20 ML VIAL ONE; +ROPIVACAINE 246.25 MG, EPINEPHRINE HCL 1:1000 1ML 0.5 MG, CLONIDINE HCL 0.08 MG, KETORO... INJ ONE
--- OUTSIDE RECORDS SUMMARY | 2018-10-03 08:08 | XMS REPORT | Continuity of Care Document ---
Author Author Maximilian aleajndra [facility] Interface Address Unknown Phone Unavailable Problems Problem Status Onset Date Classification Date Reported Comments Source Peripheral edema 09/02/2018 Diagnosis 09/02/2018 [facility] Impaired glucose tolerance 09/02/2018 Diagnosis 09/02/2018 [facility] Idiopathic pulmonary fibrosis 09/02/2018 Diagnosis 09/02/2018 [facility] Rheumatoid lung disease 09/02/2018 Diagnosis 09/02/2018 [facility] Mixed hyperlipidemia 09/02/2018 Diagnosis 09/02/2018 [facility] Pre-surgery evaluation 09/02/2018 Diagnosis 09/02/2018 [facility] Osteoarthritis of knee 09/02/2018 Diagnosis 09/02/2018 [facility] Peripheral Edema 09/02/2018 Problem 09/02/2018 [facility] Osteopenia 07/07/2018 Problem 09/02/2018 [facility] Morbid obesity 05/17/2018 Diagnosis 05/17/2018 [facility] Body mass index 30+ - obesity 05/17/2018 Diagnosis 05/17/2018 [facility] Mixed Hyperlipidemia 04/11/2018 Problem 09/02/2018 [facility] Impaired Glucose Tolerance 04/11/2018 Problem 09/02/2018 [facility] Rheumatoid Lung Disease 01/04/2018 Problem 09/02/2018 [facility] Long-term Current Use of Leflunomide 01/04/2018 Problem 09/02/2018 [facility] Cough 07/27/2017 Diagnosis 07/28/2017 [facility] Hyponatremia 07/27/2017 Diagnosis 07/28/2017 [facility] Hypocalcemia 07/27/2017 Diagnosis 07/28/2017 [facility] Adult health examination 07/27/2017 Diagnosis 07/28/2017 [facility] Advance directive discussed with patient 07/27/2017 Diagnosis 07/28/2017 [facility] Depression screening 07/27/2017 Diagnosis 07/28/2017 [facility] Tachycardia 07/23/2017 Diagnosis 07/28/2017 [facility] Hypovolemia 07/23/2017 Diagnosis 07/28/2017 [facility] Influenza 07/23/2017 Diagnosis 07/28/2017 [facility] Fever 07/23/2017 Diagnosis 07/28/2017 [facility] Upper respiratory infection 07/23/2017 Diagnosis 07/28/2017 [facility] Pain in right shoulder 07/20/2017 10/19/2017 [facility] [place] RT SHOULDER Active 06/03/2017 [facility] [place] Immunization 04/05/2017 Diagnosis 07/28/2017 [facility] Onychomycosis of toenails 04/05/2017 Diagnosis 07/28/2017 [facility] Long-term current use of drug therapy 04/05/2017 Diagnosis 07/28/2017 [facility] Hepatitis C screening 04/05/2017 Diagnosis 07/28/2017 [facility] Idiopathic Pulmonary Fibrosis 04/05/2017 Problem 07/28/2017 [facility] Contact dermatitis 03/05/2017 Diagnosis 07/28/2017 [facility] Obstructive sleep apnea syndrome 03/05/2017 Diagnosis 07/28/2017 [facility] Interstitial lung disease 03/05/2017 Diagnosis 07/28/2017 [facility] Polyp of Colon 01/29/2017 Problem 09/02/2018 [facility] Internal Hemorrhoids 01/29/2017 Problem 09/02/2018 [facility] Tinea corporis 11/09/2016 Diagnosis 07/28/2017 [facility] Rheumatoid arthritis 11/09/2016 Diagnosis 07/28/2017 [facility] Obstructive Sleep Apnea Syndrome 11/09/2016 Problem 09/02/2018 [facility] Interstitial Lung Disease 11/09/2016 Problem 09/02/2018 [facility] Rheumatoid Arthritis 11/09/2016 Problem 09/02/2018 [facility] Osteoarthritis of Knee 11/09/2016 Problem 09/02/2018 [facility] Osteoarthritis, knee Active Problem 09/10/2018 [facility] Sciatica of left side Active Problem 09/10/2018 [facility] Rheumatoid arthritis with positive rheumatoid factor Active Problem 09/10/2018 [facility] 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 Active Problem 09/10[facility] [place] Special screening for osteoporosis Active Problem 09/10/2018 [facility] Other medical terminologist drug therapy Active Problem 09/10/2018 [facility] Osteopenia Active Problem 09/10/2018 [facility] Muscle weakness 10/19/2017 [facility] [place] Medications Medication Details Route Status Patient Instructions [...] dipropionate 0.05 % topical cream Active 03/05/2017 [facility] Clotrimazole 10 MG/ML Topical Cream clotrimazole 1 % topical cream Active 03/05/2017 [facility] Betamethasone 0.5 MG/ML / Clotrimazole 10 MG/ML Topical Cream clotrimazole-betamethasone 1 %-0.05 % topical cream APPLY CREAM TOPICALLY TO AFFECTED AREA TWICE DAILY IN THE MORNING AND EVENING FOR 2 WEEKS Active 03/05/2017 [facility] POLYETHYLENE GLYCOL 3350 [id number] MG / Potassium Chloride 1480 MG / Sodium Bicarbonate 5720 MG / Sodium Chloride 23310 MG Powder for Oral Solution peg-electrolyte solution 420 gram oral solution Active 03/05/2017 [facility] Amoxicillin 500 MG Oral Capsule amoxicillin 500 mg capsule Active 11/09/2016 [facility] Azithromycin 250 MG Oral Tablet azithromycin 250 mg tablet Active 11/09/2016 [facility] Cefuroxime 500 MG Oral Tablet cefuroxime axetil 500 mg tablet Active 11/09/2016 [facility] Diclofenac Sodium 0.01 MG/MG Topical Gel diclofenac 1 % topical gel Active 11/09/2016 [facility] gabapentin 100 MG Oral Capsule gabapentin 100 mg capsule Active 11/09/2016 [facility] Acetaminophen 325 MG / Hydrocodone Bitartrate 7.5 MG Oral Tablet hydrocodone 7.5 mg-acetaminophen 325 mg tablet Active 11/09/2016 [facility] Ibuprofen 800 MG Oral Tablet ibuprofen 800 mg tablet Active 11/09/2016 [facility] methylprednisolone 4 mg tablets in a dose pack methylprednisolone 4 mg tablets in a dose pack Active 11/09/2016 [facility] Suprep Bowel Prep Kit 17.5 gram-3.13 gram-1.6 gram oral solution Suprep Bowel Prep Kit 17.5 gram-3.13 gram-1.6 gram oral solution Active 11/09/2016 [facility] terbinafine 250 MG Oral Tablet terbinafine HCl 250 mg tablet Active 11/09/2016 [facility] Leflunomide TAKE ONE TABLET BY MOUTH ONCE DAILY Orally Active 20MG Orally Once a day Opal 06/18/2016 [facility] Xeljanz XR 1 tablet Orally Active 11 MG Orally Once a day Opal 03/24/2016 [facility] Furosemide 1 ml Orally Active 40 MG/4ML Orally Twice a day [facility] Klor-Con M20 1 tablet with food Orally Active 20 MEQ Orally Once a day [facility] Potassium 1 tablet Orally Active 75 MG Orally Once a day [facility] Pramipexole Dihydrochloride 1 tablet before bedtime Orally Active 0.25 MG Orally Once a day [facility] PredniSONE 1 tablet Orally Active 7mg Orally Once a day [facility] Alendronate Sodium TAKE 1 TABLET BY MOUTH ONCE A WEEK NA Active 35MG Opal [facility] PredniSONE 1 tablet orally Active 5MG orally once a day [facility] Xeljanz XR 1 tablet Orally Active 11 MG Orally Once a day [facility] Alendronate Sodium 1 tablet Orally Active 35 MG Orally Once a week [facility] Tylenol 1 tablet as needed Orally Active 325 MG Orally every 4 hrs [facility] Alendronic acid 35 MG Oral Tablet alendronate 35 mg tablet Take 1 tablet every week by oral route for 84 days. Active [facility] Furosemide 40 MG Oral Tablet furosemide 40 mg tablet Take 1 tablet every day by oral route for 90 days. Active [facility] Microencapsulated Potassium Chloride 20 MEQ Extended Release Oral Tablet [Klor-Con] Klor-Con M20 mEq tablet,extended release Take 2 tablets every day by oral route. Active [facility] leflunomide 20 MG Oral Tablet leflunomide 20 mg tablet Take 1 tablet every day by oral route for 90 days. Active [facility] Pramipexole dihydrochloride 0.25 MG Oral Tablet pramipexole 0.25 mg tablet Take 1 tablet every day by oral route at bedtime for 30 days. Active [facility] Prednisone 1 MG Oral Tablet prednisone 1 mg tablet Active [facility] Prednisone 5 MG Oral Tablet prednisone 5 mg tablet Active [facility] Albuterol 0.09 MG/ACTUAT Metered Dose Inhaler Ventolin HFA 90 mcg/actuation aerosol inhaler Inhale 2 puffs 3 times a day by inhalation route for 30 days. Active [facility] 24 HR tofacitinib 11 MG Extended Release Oral Tablet [Xeljanz] Xeljanz XR 11 mg tablet,extended release Take 1 tablet every day by oral route. Active [facility] benzonatate 200 MG Oral Capsule benzonatate 200 mg capsule Take 1 capsule 3 times a day by oral route for 10 days. Active [facility] Doxepin Hydrochloride 50 MG/ML Topical Cream doxepin 5 % topical cream Active [facility] 12 HR Guaifenesin 600 MG Extended Release Oral Tablet guaifenesin ER 600 mg tablet, extended release 12 hr Take 1 tablet every 12 hours by oral route. Active [facility] Levofloxacin 500 MG Oral Tablet levofloxacin 500 mg tablet Take 1 tablet every 24 hours by oral route after meals for 10 days. Active [facility] Oseltamivir 75 MG Oral Capsule oseltamivir 75 mg capsule Active [facility] prednisone prednisone 7 mg once daily as directed Active [facility] tramadol hydrochloride 50 MG Oral Tablet tramadol 50 mg tablet Active [facility] 200 ACTUAT Albuterol 0.09 MG/ACTUAT Metered Dose Inhaler [Ventolin] Ventolin HFA 90 mcg/actuation aerosol inhaler Inhale 2 puffs 3 times a day by inhalation route for 30 days. Active [facility] Microencapsulated Potassium Chloride 20 MEQ Extended Release Oral Tablet potassium chloride ER 20 mEq tablet,extended release(part/cryst) Take 2 tablets every day by oral route. Active [facility] Allergies, Adverse Reactions, Alerts Substance Category Reaction Severity Reaction type Status Date Reported Comments Source N.K.D.A. Adverse Reaction Info Not Available Adverse Reaction Active 07/01/2018 [facility] Immunizations Immunization Date Given Site Status Last Updated Comments Source influenza, injectable, quadrivalent, preservative free 04/08/2018 completed [facility] Tdap 04/05/2017 completed [facility] influenza, unspecified formulation 05/12/2016 completed [facility] pneumococcal polysaccharide PPV23 08/02/2015 completed [facility] Results Order Name Results Value Reference Range Date Interpretation Comments Source Comprehensive metabolic 1999 panel - Serum or Plasma ALT 27 U/L 0 - 55 07/27/2017 [facility] Comprehensive metabolic 1999 panel - Serum or Plasma AST 29 U/L 5 - 34 07/27/2017 [facility] Comprehensive metabolic 1999 panel - Serum or Plasma BUN 15.2 mg/dL 8.4 - 25.7 07/27/2017 [facility] Comprehensive metabolic 1999 panel - Serum or Plasma alk phos 48 unit/L 40 - 150 07/27/2017 [facility] Comprehensive metabolic 1999 panel - Serum or Plasma glucose 110 mg/dL 70 - 99 07/27/2017 [facility] Comprehensive metabolic 1999 panel - Serum or Plasma albumin 3.5 g/dL 3.5 - 5.0 07/27/2017 [facility] Comprehensive metabolic 1999 panel - Serum or Plasma creatinine 1.02 mg/dL 0.72 - 1.25 07/27/2017 [facility] Comprehensive metabolic 1999 panel - Serum or Plasma eGFR non- >60 >60 07/27/2017 [facility] Comprehensive metabolic 1999 panel - Serum or Plasma total bilirubin 0.6 mg/dL 0.2 - 1.2 07/27/2017 [facility] Comprehensive metabolic 1999 panel - Serum or Plasma eGFR - >60 >60 07/27/2017 [facility] Comprehensive metabolic 1999 panel - Serum or Plasma sodium 132 mEq/L 136 - 145 07/27/2017 [facility] Comprehensive metabolic 1999 panel - Serum or Plasma potassium 4.1 mEq/L 3.5 - 5.1 07/27/2017 [facility] Comprehensive metabolic 1999 panel - Serum or Plasma chloride 96 mmol/L 98 - 107 07/27/2017 [facility] Comprehensive metabolic 1999 panel - Serum or Plasma total protein 6.8 g/dL 6.4 - 8.3 07/27/2017 [facility] Comprehensive metabolic 1999 panel - Serum or Plasma calcium 8.0 mg/dL 8.4 - 10.2 07/27/2017 [facility] Comprehensive metabolic 1999 panel - Serum or Plasma CO2 24.6 mmol/L 22.0 - 29.0 07/27/2017 [facility] Comprehensive metabolic 1999 panel - Serum or Plasma anion gap 11 calc 07/27/2017 [facility] CBC W Auto Differential panel - Blood white blood cell count 12.1 thousand/uL 3.8 - 10.8 07/24/2017 [facility] CBC W Auto Differential panel - Blood red blood cell count 4.64 million/uL 4.20 - 5.80 07/24/2017 [facility] CBC W Auto Differential panel - Blood hemoglobin 14.0 g/dL 13.2 - 17.1 07/24/2017 [facility] CBC W Auto Differential panel - Blood hematocrit 40.6 % 38.5 - 50.0 07/24/2017 [facility] CBC W Auto Differential panel - Blood MCV 87.5 fL 80.0 - 100.0 07/24/2017 [facility] CBC W Auto Differential panel - Blood MCH 30.2 pg 27.0 - 33.0 07/24/2017 [facility] CBC W Auto Differential panel - Blood MCHC 34.5 g/dL 32.0 - 36.0 07/24/2017 [facility] CBC W Auto Differential panel - Blood RDW 13.3 % 11.0 - 15.0 07/24/2017 [facility] CBC W Auto Differential panel - Blood platelet count 166 thousand/uL 140 - 400 07/24/2017 [facility] CBC W Auto Differential panel - Blood MPV 10.8 fL 7.5 - 12.5 07/24/2017 [facility] CBC W Auto Differential panel - Blood absolute neutrophils 9390 cells/uL 1500 - 7800 07/24/2017 [facility] CBC W Auto Differential panel - Blood absolute lymphocytes 1186 cells/uL 850 - 3900 07/24/2017 [facility] CBC W Auto Differential panel - Blood absolute monocytes 1488 cells/uL 200 - 950 07/24/2017 [facility] CBC W Auto Differential panel - Blood absolute eosinophils 0 cells/uL 15 - 500 07/24/2017 [facility] CBC W Auto Differential panel - Blood absolute basophils 36 cells/uL 0 - 200 07/24/2017 [facility] CBC W Auto Differential panel - Blood neutrophils 77.6 % 07/24/2017 [facility] CBC W Auto Differential panel - Blood lymphocytes 9.8 % 07/24/2017 [facility] CBC W Auto Differential panel - Blood monocytes 12.3 % 07/24/2017 [facility] CBC W Auto Differential panel - Blood eosinophils 0.0 % 07/24/2017 [facility] CBC W Auto Differential panel - Blood basophils 0.3 % 07/24/2017 [facility] Urinalysis macro (dipstick) panel - Urine Color Color yellow 07/23/2017 [facility] Urinalysis macro (dipstick) panel - Urine Color Appearance clear 07/23/2017 [facility] Urinalysis macro (dipstick) panel - Urine Color Glucose negative 07/23/2017 [facility] Urinalysis macro (dipstick) panel - Urine Color Bilirubin negative 07/23/2017 [facility] Urinalysis macro (dipstick) panel - Urine Color Ketones negative 07/23/2017 [facility] Urinalysis macro (dipstick) panel - Urine Color Specific [place] 1.010 07/23/2017 [facility] Urinalysis macro (dipstick) panel - Urine Color Blood negative 07/23/2017 [facility] Urinalysis macro (dipstick) panel - Urine Color PH 6.0 07/23/2017 [facility] Urinalysis macro (dipstick) panel - Urine Color Protein trace 07/23/2017 [facility] Urinalysis macro (dipstick) panel - Urine Color Urobilinogen 0.2 07/23/2017 [facility] Urinalysis macro (dipstick) panel - Urine Color Nitrites negative 07/23/2017 [facility] Urinalysis macro (dipstick) panel - Urine Color Leukocytes negative 07/23/2017 [facility] Hepatitis C virus RNA [Units/volume] (viral load) in Serum or Plasma by Probe and target amplification method hepatitis C antibody non-reactive non 04/06/2017 [facility] Hepatitis C virus RNA [Units/volume] (viral load) in Serum or Plasma by Probe and target amplification method signal to cut-off 0.03 <1.00 04/06/2017 [facility] Hemoglobin A1c/Hemoglobin.total in Blood hemoglobin A1C 5.3 %_of_total_HGB <5.7 04/06/2017 [facility] Hemoglobin A1c/Hemoglobin.total in Blood EAG (mg/dL) 105 (calc) 04/06/2017 [facility] Hemoglobin A1c/Hemoglobin.total in Blood EAG (mmol/L) 5.8 (calc) 04/06/2017 [facility] Comprehensive metabolic 1999 panel - Serum or Plasma glucose 79 mg/dL 65 - 99 04/06/2017 [facility] Comprehensive metabolic 1999 panel - Serum or Plasma urea nitrogen (BUN) 13 mg/dL 7 - 25 04/06/2017 [facility] Comprehensive metabolic 1999 panel - Serum or Plasma creatinine 0.90 mg/dL 0.70 - 1.33 04/06/2017 [facility] Comprehensive metabolic 1999 panel - Serum or Plasma eGFR non-afr. lithuanian 94 mL/min/1.73m2 > or=60 04/06/2017 [facility] Comprehensive metabolic 1999 panel - Serum or Plasma eGFR 109 mL/min/1.73m2 > or=60 04/06/2017 [facility] Comprehensive metabolic 1999 panel - Serum or Plasma BUN/creatinine ratio not applicable 6 - 22 04/06/2017 [facility] Comprehensive metabolic 1999 panel - Serum or Plasma sodium 142 mmol/L 135 - 146 04/06/2017 [facility] Comprehensive metabolic 1999 panel - Serum or Plasma potassium 4.2 mmol/L 3.5 - 5.3 04/06/2017 [facility] Comprehensive metabolic 1999 panel - Serum or Plasma chloride 104 mmol/L 98 - 110 04/06/2017 [facility] Comprehensive metabolic 1999 panel - Serum or Plasma carbon dioxide 27 mmol/L 20 - 31 04/06/2017 [facility] Comprehensive metabolic 1999 panel - Serum or Plasma calcium 9.3 mg/dL 8.6 - 10.3 04/06/2017 [facility] Comprehensive metabolic 1999 panel - Serum or Plasma protein, total 6.7 g/dL 6.1 - 8.1 04/06/2017 [facility] Comprehensive metabolic 1999 panel - Serum or Plasma albumin 4.3 g/dL 3.6 - 5.1 04/06/2017 [facility] Comprehensive metabolic 1999 panel - Serum or Plasma globulin 2.4 g/dL_(calc) 1.9 - 3.7 04/06/2017 [facility] Comprehensive metabolic 1999 panel - Serum or Plasma albumin/globulin ratio 1.8 (calc) 1.0 - 2.5 04/06/2017 [facility] Comprehensive metabolic 1999 panel - Serum or Plasma bilirubin, total 0.5 mg/dL 0.2 - 1.2 04/06/2017 [facility] Comprehensive metabolic 1999 panel - Serum or Plasma alkaline phosphatase 50 U/L 40 - 115 04/06/2017 [facility] Comprehensive metabolic 1999 panel - Serum or Plasma AST 20 U/L 10 - 35 04/06/2017 [facility] Comprehensive metabolic 1999 panel - Serum or Plasma ALT 23 U/L 9 - 46 04/06/2017 [facility] Prostate specific Ag [Mass/volume] in Serum or Plasma PSA, total 1.0 NG/mL < or=4.0 09/18/2016 [facility] PT and aPTT panel - Platelet poor plasma by Coagulation assay partial thromboplastin time, activated 27 sec 22 - 34 09/18/2016 [facility] PT and aPTT panel - Platelet poor plasma by Coagulation assay INR 1.0 09/18/2016 [facility] PT and aPTT panel - Platelet poor plasma by Coagulation assay PT 10.4 sec 9.0 - 11.5 09/18/2016 [facility] Lipid 1995 panel - Serum or Plasma cholesterol, total 231 mg/dL 125 - 200 09/18/2016 [facility] Lipid 1995 panel - Serum or Plasma HDL cholesterol 41 mg/dL > or=40 09/18/2016 [facility] Lipid 1995 panel - Serum or Plasma triglycerides 160 mg/dL <150 09/18/2016 [facility] Lipid 1995 panel - Serum or Plasma LDL-cholesterol 158 mg/dL_(calc) <130 09/18/2016 [facility] Lipid 1995 panel - Serum or Plasma chol/HDLC ratio 5.6 (calc) < or=5.0 09/18/2016 [facility] Lipid 1995 panel - Serum or Plasma non HDL cholesterol 190 mg/dL_(calc) 09/18/2016 [facility] Comprehensive metabolic 1999 panel - Serum or Plasma glucose 90 mg/dL 65 - 99 09/18/2016 [facility] Comprehensive metabolic 1999 panel - Serum or Plasma urea nitrogen (BUN) 15 mg/dL 7 - 25 09/18/2016 [facility] Comprehensive metabolic 1999 panel - Serum or Plasma creatinine 0.91 mg/dL 0.70 - 1.33 09/18/2016 [facility] Comprehensive metabolic 1999 panel - Serum or Plasma eGFR non-afr. lithuanian 93 mL/min/1.73m2 > or=60 09/18/2016 [facility] Comprehensive metabolic 1999 panel - Serum or Plasma eGFR 108 mL/min/1.73m2 > or=60 09/18/2016 [facility] Comprehensive metabolic 1999 panel - Serum or Plasma BUN/creatinine ratio not applicable 6 - 09/18/2016 [facility] Comprehensive metabolic 1999 panel - Serum or Plasma sodium 142 mmol/L 135 - 146 09/18/2016 [facility] Comprehensive metabolic 1999 panel - Serum or Plasma potassium 3.9 mmol/L 3.5 - 5.3 09/18/2016 [facility] Comprehensive metabolic 1999 panel - Serum or Plasma chloride 104 mmol/L 98 - 110 09/18/2016 [facility] Comprehensive metabolic 1999 panel - Serum or Plasma carbon dioxide 25 mmol/L 20 - 31 09/18/2016 [facility] Comprehensive metabolic 1999 panel - Serum or Plasma calcium 9.4 mg/dL 8.6 - 10.3 09/18/2016 [facility] Comprehensive metabolic 1999 panel - Serum or Plasma protein, total 7.0 g/dL 6.1 - 8.1 09/18/2016 [facility] Comprehensive metabolic 1999 panel - Serum or Plasma albumin 4.5 g/dL 3.6 - 5.1 09/18/2016 [facility] Comprehensive metabolic 1999 panel - Serum or Plasma globulin 2.5 g/dL_(calc) 1.9 - 3.7 09/18/2016 [facility] Comprehensive metabolic 1999 panel - Serum or Plasma albumin/globulin ratio 1.8 (calc) 1.0 - 2.5 09/18/2016 [facility] Comprehensive metabolic 1999 panel - Serum or Plasma bilirubin, total 0.7 mg/dL 0.2 - 1.2 09/18/2016 [facility] Comprehensive metabolic 1999 panel - Serum or Plasma alkaline phosphatase 55 U/L 40 - 115 09/18/2016 [facility] Comprehensive metabolic 1999 panel - Serum or Plasma AST 16 U/L 10 - 35 09/18/2016 [facility] Comprehensive metabolic 1999 panel - Serum or Plasma ALT 18 U/L 9 - 46 09/18/2016 [facility] Thyrotropin [Units/volume] in Serum or Plasma TSH 1.94 mIU/L 0.40 - 4.50 09/18/2016 [facility] CBC W Auto Differential panel - Blood white blood cell count 8.2 thousand/uL 3.8 - 10.8 09/18/2016 [facility] CBC W Auto Differential panel - Blood red blood cell count 4.55 million/uL 4.20 - 5.80 09/18/2016 [facility] CBC W Auto Differential panel - Blood hemoglobin 13.9 g/dL 13.2 - 17.1 09/18/2016 [facility] CBC W Auto Differential panel - Blood hematocrit 42.2 % 38.5 - 50.0 09/18/2016 [facility] CBC W Auto Differential panel - Blood MCV 92.7 fL 80.0 - 100.0 09/18/2016 [facility] CBC W Auto Differential panel - Blood MCH 30.7 pg 27.0 - 33.0 09/18/2016 [facility] CBC W Auto Differential panel - Blood MCHC 33.1 g/dL 32.0 - 36.0 09/18/2016 [facility] CBC W Auto Differential panel - Blood RDW 14.8 % 11.0 - 15.0 09/18/2016 [facility] CBC W Auto Differential panel - Blood platelet count 196 thousand/uL 140 - 400 09/18/2016 [facility] CBC W Auto Differential panel - Blood MPV 9.1 fL 7.5 - 12.5 09/18/2016 [facility] CBC W Auto Differential panel - Blood absolute neutrophils 5879 cells/uL 1500 - 7800 09/18/2016 [facility] CBC W Auto Differential panel - Blood absolute lymphocytes 1656 cells/uL 850 - 3900 09/18/2016 [facility] CBC W Auto Differential panel - Blood absolute monocytes 558 cells/uL 200 - 950 09/18/2016 [facility] CBC W Auto Differential panel - Blood absolute eosinophils 82 cells/uL 15 - 500 09/18/2016 [facility] CBC W Auto Differential panel - Blood absolute basophils 25 cells/uL 0 - 200 09/18/2016 [facility] CBC W Auto Differential panel - Blood neutrophils 71.7 % 09/18/2016 [facility] CBC W Auto Differential panel - Blood lymphocytes 20.2 % 09/18/2016 [facility] CBC W Auto Differential panel - Blood monocytes 6.8 % 09/18/2016 [facility] CBC W Auto Differential panel - Blood eosinophils 1.0 % 09/18/2016 [facility] CBC W Auto Differential panel - Blood basophils 0.3 % 09/18/2016 [facility] Vital Signs Vital Sign Value Date Comments Source Diastolic (mm Hg) 86 09/02/2018 [facility] Height 68 09/02/2018 [facility] Systolic (mm Hg) 140 09/02/2018 [facility] Weight 233 09/02/2018 [facility] Weight 232.5 07/01/2018 [facility] Height 68 07/01/2018 [facility] Temperature Oral (F) 96.4 F 07/01/2018 [facility] Heart Rate 84 07/01/2018 [facility] Diastolic (mm Hg) 82 07/01/2018 [facility] Systolic (mm Hg) 130 07/01/2018 [facility] Diastolic (mm Hg) 78 05/17/2018 [facility] Height 68 05/17/2018 [facility] Systolic (mm Hg) 126 05/17/2018 [facility] Weight 230 05/17/2018 [facility] Weight 226 04/01/2018 Devin Hermosillo Height [...] Systolic (mm Hg) 132 03/01/2017 [facility] Diastolic (mm Hg) 82 11/09/2016 [facility] Height 68 11/09/2016 [facility] Systolic (mm Hg) 130 11/09/2016 [facility] Weight 231.4 11/09/2016 [facility] Encounters Location Location Details Encounter Type Encounter Number Reason For Visit Attending Provider ADM Date DC Date Status Source [place] [facility] [address], [place] [address], Ph. [id number] Owen Chong Jr 11/09/2016 [facility] Ernie Stark MD: [address], [place] [address], Ph. [id number] Ernie Stark 03/05/2017 [facility] Matteo Cordon MD: [address], [place] [address], Ph. [id number] Thriveni Velkiet 04/05/2017 [facility] OP Therapy Patients [id number] Eduinreg Opal 06/14/2017 07/14/2017 [facility] Owen Chong Jr, MD: [address], [place] [address], Ph. [id number] Owen Chong Jr 07/23/2017 [facility] Matteo Cordon MD: [address], [place] [address], Ph. [id number] Thriveni Bravo 07/27/2017 [facility] Ch[facility] Jr, MD: [address], [place] [address], Ph. [id number] Owen Chong Jr 05/17/2018 [facility] Owen Chong Jr, MD: [address], [address], [place] [address], Ph. [id number] Owen Chong Jr 09/02/2018 [facility] Procedures Procedure Code Date Perfomer Comments Source electrocardiogram 05/17/2018 [facility] 2VIEWS RADIOLOGIC EXAMINATION, CHEST 89001 07/27/2017 [facility] electrocardiogram 11/09/2016 [facility] Colonoscopy & Polypectomy 13001 10/15/2016 [facility]
--- OUTSIDE RECORDS SUMMARY | 2018-10-03 08:08 | XMS REPORT | Encounter Summary ---
Author Organization Unknown Address [address] [place] [address] Phone [phone] Care Team Providers Care Park Landscape Architect Name Role Phone Dr. Owen Chong 3 [phone] Jaret Horn MD 114 [phone] Danii Joseph MD 121 [phone] Reason for Visit pre-op evaluation; swelling/edema Instructions 1. Pre-surgery evaluation 2. Mixed hyperlipidemia CMP, serum or plasma lipid panel, serum 3. Rheumatoid lung disease 4. Idiopathic pulmonary fibrosis 5. Impaired glucose tolerance CBC w/ auto diff HbA1c (hemoglobin A1c), blood 6. Osteoarthritis of knee 7. Peripheral edema Discussion Note: None recorded. Patient educational handouts: No information available. Plan of Care Reminders Provider Appointments None recorded. Lab CMP, Serum or Plasma 09/02/2018 [facility] CBC W/ Auto Diff 09/02/2018 [facility] Lipid Panel, Serum 09/02/2018 [facility] HbA1C (Hemoglobin a1C), Blood 09/02/2018 [facility] Referral None recorded. Procedures None recorded. Surgeries None recorded. Imaging None recorded. Medications Name Start Date alendronate 35 mg tablet Take 1 tablet every week by oral route for 84 days. furosemide 40 mg tablet Take 1 tablet every day by oral route for 90 days. leflunomide 20 mg tablet Take 1 tablet every day by oral route for 90 days. potassium chloride ER 20 mEq tablet,extended release(part/cryst) Take 2 tablets every day by oral route. prednisone 5 mg tablet Xeljanz XR 11 mg tablet,extended release Take 1 tablet every day by oral route. Medications Administered None recorded. Vitals Height Weight BMI Blood Pressure 5 ft 8 in 233 lbs 35.4 kg/m2 (1) 142/84 mm[Hg] (2) 140/86 mm[Hg] Lab Results None recorded. Allergies Code [...] Active 04/11/2018 Impaired Glucose Tolerance Active 04/11/2018 Osteopenia Active 07/07/2018 Peripheral Edema Active 09/02/2018 Procedures Date Name Performed by 10/15/2016 [facility]oscopy [facility] Polypectomy Information not available Vaccine List Vaccine Type influenza, injectable, quadrivalent, preservative free 04/08/20180.5 mL influenza, unspecified formulation 05/12/20160.5 mL pneumococcal polysaccharide PPV23 08/02/20150.5 mL Tdap 04/05/20170.5 mL Social History Smoking Status Never Smoker Past Encounters 09/02/2018 Pre-surgery Evaluation; Mixed Hyperlipidemia; Rheumatoid Lung Disease; Idiopathic Pulmonary Fibrosis; Impaired Glucose Tolerance; Osteoarthritis of Knee; Peripheral Edema Owen Chong Jr, MD: [address], [address], [place] [address], Ph. History of Present Illness Note:Patient presents for lab pre-operative evaluation. Currently without new complaint. Review of Systems Comprehensive General Adult ROS Reported By: Patient Constitutional: Constitutional: no significant weight gain, no significant weight loss Cardiovascular: Cardiovascular: no chest pain, shortness of breath when walking Respiratory: Respiratory: no cough, no wheezing, no shortness of breath Musculoskeletal: Musculoskeletal: muscle aches, arthralgias/joint pain Endocrine: Endocrine: no fatigue Physical Exam Diabetic Foot Exam MG, Cardiology Exam, Diabetes, Diabetic Foot Exam, Extremities Daily Note, Endo: Diabetic Foot Exam MG, Foot Only (Brief) Reported By: Patient Constitutional: General Appearance: NAD, well-nourished, well-developed, appears stated age Psychiatric: Orientation: oriented to time, oriented to place, oriented to person, oriented to time, place, and person. Mood and Affect: active and alert, normal mood, normal affect, no diffuse anxiety, no paranoid ideations. Insight: good judgment, good insight. Memory: recent memory normal, remote memory normal Vascular:: Edema Right: pretibial +, non-pitting. Edema Left: pretibial +, non- pitting. Varicosities Right: no inflammation, not painful to touch. Varicosities Left: no inflammation, not painful to touch. Rate And Rhythm: regular. Heart Sounds: normal S1, physiologically split S2, no rub, no gallop, no click. Systolic Murmur: not heard. Diastolic Murmur: not heard. Extremities: no cyanosis, no edema, no peripheral signs of emboli Dermatological: Skin Foot Right normal. Skin Foot Left normal. Signs of Infection Right no. Signs of Infection Left no. Inspection and Palpation: warm and dry. Right Lower Extremity: thin, varied pigmentation. Left Lower Extremity: thin, varied pigmentation Lungs: Respiratory Effort: unlabored. Chest Exam: no chest wall tenderness. Auscultation: clear, no wheezing, no rales, no rhonchi Peripheral Pulses: Pulses: full and equal in all extremities except if noted
--- OUTSIDE RECORDS SUMMARY | 2018-10-03 08:08 | XMS REPORT ---
Author Author Myron Hermosillo Organization [employer] Address Unknown Phone Unavailable Care Team Providers Care Structural Worker Name Role Phone Myron Hermosillo CP Unavailable Allergies No Known Allergies Problems Problem Type Condition Code Onset Dates Condition Status Problem Rheumatoid arthritis with positive rheumatoid factor M05.9 Active Problem Osteoarthritis, knee M17.9 Active Problem Osteopenia M85.80 Active Problem Other termination clerk (current) drug therapy Z79.899 Active Problem 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 M05.19 Active Problem Sciatica of left side M54.32 Active Problem Special screening for osteoporosis Z13.820 Active Medications No Known Medications Results No Known Results Summary Purpose [employer] Submission
[2018-10-03] MEDS ORDERED: CELECOXIB 200 MG CAP ONE ×2 (08:30→09:41)
[2018-10-03] MEDS ORDERED: DEXAMETHASONE SOD PHOS 10 MG/1 ML VIAL ONE (08:30)
[2018-10-03] MEDS ORDERED: GABAPENTIN 300 MG CAP ONE (08:31)
[2018-10-03] MEDS ORDERED: CEFAZOLIN SOD 2 GM/D5W 50ML 50 ML IV ONE (08:33)
[2018-10-03 09:29] LABS: BLOOD UREA NITROGEN 12 mg/dL (7-26); BUN/CREATININE RATIO 14 (6-25); CALCIUM 9.3 mg/dL (8.4-10.2); CARBON DIOXIDE 24 mmol/L (22-29); CHLORIDE 104 mmol/L (98-107); CREATININE, SERUM 0.83 mg/dL (0.72-1.25); EST GLOMERULAR FILTRATION RATE > 60 ML/MIN (60-); GLUCOSE 95 mg/dL (74-118); SODIUM 138 mmol/L (136-145)
[2018-10-03] MEDS ORDERED: VANCOMYCIN HCL 1,000 MG ONE (09:43)
[2018-10-03] MEDS ORDERED: TRANEXAMIC ACID 1,000 MG/10 ML ML ONE (09:43)
[2018-10-03] MEDS ORDERED: SODIUM CHLORIDE 0.9% 500ML 500 ML ONE (09:43)
[2018-10-03] MEDS ORDERED: BACITRACIN 50,000 UNIT VIAL ONE (09:44)
[2018-10-03 10:23] LABS: BASOPHILS # (AUTO) 0.1 (0.0-0.1); BASOPHILS % 0.9 % (0.0-1.0); EOSINOPHILS # (AUTO) 0.2 (0.0-0.4); EOSINOPHILS % 4.5 % (0.0-6.0); HEMATOCRIT 37.1 % (38.2-49.6); HEMOGLOBIN 12.3 g/dL (14.0-18.0); LYMPHOCYTES # (AUTO) 0.9 (1.0-3.2); LYMPHOCYTES % 16.7 % (18.0-39.1); MEAN CORPUSCULAR HEMOGLOBIN 30.6 pg (28-32); MEAN CORPUSCULAR HGB CONC 33.2 g/dL (31-35); MEAN CORPUSCULAR VOLUME 92.3 fL (81-99); MONOCYTES # (AUTO) 0.8 (0.2-0.8); MONOCYTES % 14.1 % (4.4-11.3); NEUTROPHILS # (AUTO) 3.4 (2.1-6.9); NEUTROPHILS % 63.4 % (38.7-80.0); PLATELET COUNT 161 x10e3/uL (140-360); RED BLOOD COUNT 4.02 x10e6/uL (4.3-5.7); RED CELL DISTRIBUTION WIDTH 13.7 % (11.7-14.4)
[2018-10-03] MEDS ORDERED: ACETAMINOPHEN 650 MG SUPP PR PRN (12:15)
[2018-10-03] MEDS ORDERED: DIPHENHYDRAMINE HCL INJ 50 MG/ML VIAL IM/IV PRN (12:15)
[2018-10-03] MEDS ORDERED: DOCUSATE SODIUM 100 MG CAP PO PRN (12:15)
[2018-10-03] MEDS ORDERED: PROMETHAZINE HCL (IM) 25 MG/ML VIAL IM PRN (12:15)
[2018-10-03] MEDS ORDERED: HYDROCODONE/APAP 7.5MG-325MG 1 EA TAB PO PRN (12:15)
[2018-10-03] MEDS ORDERED: HYDROCODONE/APAP 5MG-325MG TAB PO PRN (12:15)
[2018-10-03] MEDS ORDERED: ONDANSETRON HCL INJ 2MG/ML 2ML 2 MG/ML VIAL IV PRN (12:15)
[2018-10-03] MEDS ORDERED: KETOROLAC TROMETHAMINE 30 MG/ML VIAL IV PRN (12:15)
[2018-10-03] MEDS ORDERED: FENTANYL CITRATE/PF 100MCG/2 ML INJ ONE ×2 (12:41→17:08)
--- NOTE | 2018-10-03 13:03 | NUR ---
received report from venkat in pac[facility]. rn reports that pt is aoX3 and tolerating ice chips with no n/v. r hand 20g iv, vitals 130/80 hr: 95 o2 sat: 97% on room air, resp: 20 and temp: 97.9 F
--- NOTE | 2018-10-03 13:04 | Diagnostic Imaging Report ---
Exam: Portable left knee series History: Status post total knee replacement Comparison: None available Findings: Total knee replacement is present. There are midline surgical delano. Air within the joint space is present. Femoral and tibial prosthesis appear in good position. Impression: Status post left total knee replacement. Signed by: Dr. Warren Boogie DO on 10/03/2018 1:00 PM
--- NOTE | 2018-10-03 13:10 | NUR ---
pt arrived on the unit via stretcher from [facility], no s/s of distress. left knee is wrapped with ricarda bandage with ice pack. right compression stocking and bilateral foot compression pump. pt has patch of red/dry skin on left buttock, denies hx of skin problems.
[2018-10-03] MEDS: SODIUM CHLORIDE 0.9% 1000ML 1,000 ML IV SCH ×2 (13:30→22:09)
[2018-10-03 13:41] VITALS: BP 135/70
[2018-10-03 14:40] VITALS: BP 135/70
--- NOTE | 2018-10-03 15:32 | Operative Report ---
DATE OF PROCEDURE: 10/03/2018 SURGEON: Buster Rubi MD TAPE EDGE MACHINE OPERATOR: Ozzie Pastrana PA-C. PREOPERATIVE DIAGNOSIS: Osteoarthritis of left knee. POSTOPERATIVE DIAGNOSIS: Osteoarthritis of left knee. PROCEDURE: Left total knee arthroplasty with synovectomy. INDICATIONS: The patient is a 57-year-old gentleman, who has end-stage arthritis of his left knee. He has failed conservative management and would like to proceed with a left total knee replacement. The risks and benefits of the procedure have been discussed. The recovery has been explained. All of his questions have been answered. He states he understands and wishes to proceed. PROCEDURE IN DETAIL: The patient was brought to the operating room and placed under general anesthetic. He received prophylactic antibiotics, tranexamic acid, and a regional block in the holding area. His left lower extremity was prepped and draped in a sterile manner. A preoperative time-out was performed. The extremity was exsanguinated and a proximal tourniquet was inflated to 300 mmHg. An anterior approach with a medial parapatellar arthrotomy was performed. A massive joint effusion was evacuated. Soft tissue releases were performed to bring the knee up into flexion with the patella everted. A pronounced amount of synovial proliferation was noted. A total synovectomy of the suprapatellar pouch, medial and lateral gutters was performed. The anterior cruciate ligament was sacrificed. Throughout the case, a [employer] medial congruent knee system was used. Meniscal remnants and marginal osteophytes were removed. An extramedullary cutting guide was used to resect the proximal tibia. The tibial cut was referenced off quite extensive wear in the medial compartment. The tibial baseplate was noted to be a size G. The central fin punch was drilled and punched. Attention was directed towards the distal femur. An intramedullary cutting guide was used to resect the distal femur in 5 degrees of valgus and rotation referencing off a combination of landmarks including Whitesides line, the epicondylar axis, and the posterior condyles. The femoral component was a size 8. The anterior and posterior cuts were made. A trial reduction was performed. An 11 mm medial congruent tibial insert provided appropriate soft tissue balancing in full extension and 90 degrees of flexion. The patella was resurfaced with a 35 mm x 9 mm patellar button. The thickness of the patella was checked before and after resurfacing and was right around 25 mm. Patellar tracking was noted to be concentric. The trial implants were removed. Additional synovial proliferation was excised using electrocautery where necessary. A 100 mL premixed pericapsular OZZIE injection was placed into the surrounding soft tissue. The knee was thoroughly irrigated with a shower tip pulsatile lavage. Bone cuts had been irrigated during the earlier part of the procedure with a spray mixture of polymyxin and vancomycin spray. The components were cemented into place using a single mix of Palacos cement preloaded with antibiotics. Care was taken to remove all extravasated cement. The wound was further irrigated while the cement cured. The arthrotomy was then closed with interrupted #1 Ethibond stitches. The knee was put through flexion and extension to ensure a secure closure. The skin was closed with subcuticular Vicryl and delano. A sterile Aquacel bandage was applied. The patient was extubated and transported to the recovery room in stable condition. Blood loss was minimal. All needle and sponge counts were correct. Buster Rubi MD DR/CHRISTIANO /[id number]
[2018-10-03] MEDS ORDERED: LIDOCAINE HCL 2% LOCAL INJ 5 ML SDV VIAL INJ ONE (16:49)
[2018-10-03] MEDS ORDERED: ONDANSETRON HCL INJ 2MG/ML 2ML 2 MG/ML VIAL ONE (16:49)
[2018-10-03] MEDS ORDERED: PROPOFOL IV EMULSION 10 MG/ML 20 ML VIAL ONE (16:49)
[2018-10-03] MEDS ORDERED: SEVOFLURANE INHAL SOLN 250 ML PEN BTL ONE (16:49)
[2018-10-03] MEDS ORDERED: ACETAMINOPHEN 1000 MG/100 ML IV ONE (16:49)
[2018-10-03] MEDS ORDERED: CELECOXIB 100 MG CAP PO SCH (17:00)
[2018-10-03] MEDS ORDERED: EPINEPHRINE HCL 1:1000 1ML 1 MG/ML AMP ONE (17:03)
[2018-10-03] MEDS ORDERED: BUPIVACAINE HCL 0.5% INJ 30 ML VIAL INJ ONE (17:03)
[2018-10-03] MEDS: CEFAZOLIN SOD 1 GM/NS 50ML 50 ML IV SCH (17:07)
[2018-10-03] MEDS: ASPIRIN 325 MG TAB PO SCH (17:08)
[2018-10-03] MEDS ORDERED: MIDAZOLAM HCL 2 MG/2 ML VIAL ONE (17:08)
[2018-10-03] MEDS: CELECOXIB 200 MG CAP PO SCH (17:08)
[2018-10-03 17:09] VITALS: BP 111/58
[2018-10-03 17:35] VITALS: BP 111/58
[2018-10-03] MEDS: ACETAMINOPHEN 1000 MG/100 ML IV SCH (17:46)
--- NOTE | 2018-10-03 19:30 | NUR ---
Rounding done & report received. Patient resting in bed awake & alert, respirations even & unlabored, no distress noted. William wrap on left knee, CPM in place to left leg, rates pain level 4/10, will medicate per e mar. IV fluids running to right hand, intact & no infiltration noted. Call light within reach, side rails x2 raised & bed set to lowest position.
[2018-10-03 20:00] VITALS: BP 94/50
[2018-10-03] MEDS ORDERED: ZOLPIDEM TARTRATE 5 MG TAB PO PRN (21:00)
[2018-10-04] VITALS (7 sets, daily range): BP systolic 94–125; BP diastolic 50–65
[2018-10-04] MEDS: ACETAMINOPHEN 1000 MG/100 ML IV SCH ×2 (00:24→05:25)
[2018-10-04] MEDS: SODIUM CHLORIDE 0.9% 1000ML 1,000 ML IV SCH (01:06)
[2018-10-04] MEDS: CEFAZOLIN SOD 1 GM/NS 50ML 50 ML IV SCH ×2 (01:22→09:52)
[2018-10-04 05:34] LABS: HEMATOCRIT 30.5 % (38.2-49.6); HEMOGLOBIN 10.1 g/dL (14.0-18.0)
--- NOTE | 2018-10-04 06:04 | NUR ---
CPM placed to left leg, setting @ 60, patient denies any pain or issues
--- NOTE | 2018-10-04 08:15 | NUR ---
RCD PT AT BED PT IS ALERT AND ORIENTED PT RESTING ON BED NO SIGNS OF ANY DISTRESS NOTED IV PATENT BED LOW AND LOCKED CALL LIGHT IN REACH
[2018-10-04] MEDS ORDERED: FUROSEMIDE 40 MG TAB PO SCH (09:00)
[2018-10-04] MEDS ORDERED: POTASSIUM CHLORIDE 20 MEQ PO SCH (09:00)
[2018-10-04] MEDS: CELECOXIB 200 MG CAP PO SCH ×2 (09:00→16:49)
[2018-10-04] MEDS ORDERED: PREDNISONE 5 MG TAB PO SCH (09:00)
[2018-10-04] MEDS ORDERED: XELJANZ 11 MG PO SCH ×2 (09:00)
[2018-10-04] MEDS: POTASSIUM CHLORIDE 20 MEQ TAB CR PO SCH ×2 (09:00→16:49)
[2018-10-04] MEDS: ASPIRIN 325 MG TAB PO SCH ×2 (09:00→16:48)
[2018-10-04] MEDS ORDERED: NON-FORMULARY MEDICATION (Leflunomide 20 MG) PO SCH ×2 (09:00)
[2018-10-04] MEDS ORDERED: ONDANSETRON HCL 4 MG ORAL DISINTEGRATING TAB PO PRN (11:45)
[2018-10-04] MEDS ORDERED: ACETAMINOPHEN 1000 MG/100 ML IV PRN (12:15)
--- NOTE | 2018-10-04 12:42 | NUR ---
PAGED DR MURPHY AND NOTIFY THE PT DISCHARGED BY DR IBARRA ,GOT THE DISCHARGE APPROVAL FROM DR MURPHY
[2018-10-04] MEDS ORDERED: ULTRAM 50MG50 MG PO (12:48)
--- NOTE | 2018-10-04 13:00 | NUR ---
DISCHARGE INSTRUCTIONS AND POSTOPERATIVE INSTRUCTIONS GIVEN HE SAID HE UNDERSTOOD
--- NOTE | 2018-10-04 17:40 | NUR ---
PT WENT HOME IN SAFE CONDITION WITH HIS
[2018-10-04] MEDS ORDERED: PRAMIPEXOLE DIHYDROCHLORIDE 0.25 MG TAB PO SCH (21:00)
== END 2018-10-04 17:43 | disposition home health service (06) ==
LOC: OR 08:01 → PACU V 12:11 → MED/SURG 13:05
PROVIDERS: ADMIT Specialist; ATTEND Specialist
DX: M17.12 Unilateral primary osteoarthritis, left knee (principal); Z01.810 Encounter for preprocedural cardiovascular examination; Z01.812 Encounter for preprocedural laboratory examination; G47.33 Obstructive sleep apnea (adult) (pediatric); J84.10 Pulmonary fibrosis, unspecified; M06.9 Rheumatoid arthritis, unspecified; M81.0 Age-related osteoporosis without current pathological fracture
CPT/HCPCS: 27334; 27447; 36415 ×2; 73560; 80048; 85014; 85018; 85025; 86850; 86900; 86920; 93005; 97116 ×2; 97162; C1713; G0378 ×2; J0131 ×2; J0171; J0690 ×3; J1100; J1885; J2001; J2250; J2405; J2704; J2795; J3370; J7030; J7040; J7512

== ENCOUNTER → 2021-02-06 | Day surgery (SDC) | payer MEDICARE ==
[2021-02-04 13:36] LABS: ANION GAP 15.3 mmol/L (8-16); CALCIUM 9.6 mg/dL (8.4-10.2); CREATININE, SERUM 1.31 mg/dL (0.72-1.25); POTASSIUM 4.3 mmol/L (3.5-5.1)
[~2021-02-06] MED LIST changes: +FEROSUL325 MG PO; +FLONASE ALLERG9.9 ML INH; +LIDOCAINE HCL 2% LOCAL INJ 5 ML SDV VIAL INJ ONE; +LISINOPRIL5 MG PO; +MELOXICAM7.5 MG PO; +METOPROLOL SUCC25 MG PO; +PROPOFOL IV EMULSION 10 MG/ML 20 ML VIAL ONE; -ROPIVACAINE 246.25 MG, EPINEPHRINE HCL 1:1000 1ML 0.5 MG, CLONIDINE HCL 0.08 MG, KETORO... INJ ONE; +ULTRAM 50MG50 MG PO; +VITAMIN D350 MCG
[2021-02-06 09:45] VITALS: BP 126/80
== END | disposition home or self-care (01) ==
LOC: OR 07:18
PROVIDERS: ATTEND Internal Medicine Gastroenterology
DX: Z09 Encounter for follow-up examination after completed treatment for conditions other than malignant neoplasm (principal); K63.5 Polyp of colon; K64.8 Other hemorrhoids; Z71.3 Dietary counseling and surveillance; G47.33 Obstructive sleep apnea (adult) (pediatric); E66.9 Obesity, unspecified; I12.9 Hypertensive chronic kidney disease with stage 1 through stage 4 chronic kidney disease, or unspecified chronic kidney disease; N18.9 Chronic kidney disease, unspecified; M06.9 Rheumatoid arthritis, unspecified; Z01.810 Encounter for preprocedural cardiovascular examination; Z01.812 Encounter for preprocedural laboratory examination; Z20.822 Contact with and (suspected) exposure to COVID-19; Z68.36 Body mass index [BMI] 36.0-36.9, adult; Z87.891 Personal history of nicotine dependence; Z80.0 Family history of malignant neoplasm of digestive organs
CPT/HCPCS: 36415; 45380; 80048; 93005; J2001; J2704; U0002; 45378